=== PATIENT | female | born 1960 | race Two or more races ===

== ENCOUNTER 2020-06-12 17:10 | Outpatient (REF) | payer OTHER, SELFPAY ==
--- NOTE | ~2020-06-12 | XR_ITS ---
EXAMINATION: XR RIGHT KNEE. RIGHT TIBIA AND FIBULA CLINICAL INFORMATION: Pain right leg. COMPARISON: None. TECHNIQUE: 2 views right tibia and fibula. 4 views right knee. FINDINGS: Right Tibia and Fibula: There is no visible fracture or bony abnormality. The periosteum is intact. The ankle mortise and subtalar joints are normal. Right Knee: There is no visible acute fracture, dislocation or subluxation. No bony erosive changes. No abnormal joint effusion. There are no loose body seen. XR/XR tibia fibula RT 2V IMPRESSION: Unremarkable right tibia and fibula. Unremarkable right knee exam.
--- NOTE | ~2020-06-12 | XR_ITS ---
EXAMINATION: XR RIGHT KNEE. RIGHT TIBIA AND FIBULA CLINICAL INFORMATION: Pain right leg. COMPARISON: None. TECHNIQUE: 2 views right tibia and fibula. 4 views right knee. FINDINGS: Right Tibia and Fibula: There is no visible fracture or bony abnormality. The periosteum is intact. The ankle mortise and subtalar joints are normal. Right Knee: There is no visible acute fracture, dislocation or subluxation. No bony erosive changes. No abnormal joint effusion. There are no loose body seen. XR/XR knee RT 4V IMPRESSION: Unremarkable right tibia and fibula. Unremarkable right knee exam.
[2020-06-12 18:08] LABS: MANUAL DIFF FLAG NO
[2020-06-12 18:13] LABS: Glucose Urine UA NEG (NEG); Leukocyte Esterase Urine NEG (NEG); Nitrite Urine NEG (NEG); PH 8.5 (5.0-8.0); Specific Gravity - Urine 1.015 (1.005-1.025); Urine Blood TRACE (NEG); Urine Ketones NEG (NEG); Urine Protein NEG (NEG-TRACE)
[2020-06-12 18:16] LABS: Appearance Urine CLEAR; Color Urine YELLOW
[2020-06-12 18:24] LABS: RBC Urine 0-2 /HPF (0); Squamous Epithelial Cell Urine 1+ /LPF; WBC Urine 0-2 /HPF (0-4)
[2020-06-12 18:26] LABS: Basophils Absolute Auto 0.1 X10*3/uL (0.0-0.2); Basophils Percent Auto 0.9 % (0-2); Eosinophils Absolute Auto 0.1 X10*3/uL (0.0-0.4); Eosinophils Percent Auto 1.8 % (0-4); Hematocrit 40.6 % (37-47); Hemoglobin 12.9 g/dl (12.0-16.0); Imm Gran Abs Auto 0.01 X10*3/uL (0.00-0.03); Imm Gran Pct Auto 0.2 % (0.0-0.4); Mean Corpuscular HGB Conc 31.8 g/dl (31.0-35.0); Mean Corpuscular Hemoglobin 30.3 pg (27.0-33.0); Mean Corpuscular Volume 95.3 fL (80-98); Mean Platelet Volume 9.1 fL (9.4-12.3); Monocytes Absolute Auto 0.4 X10*3/uL (0.1-1.2); Monocytes Percent Auto 6.4 % (2-11); Neutrophils Percent Auto 36.7 % (45-73); Platelet Count 292 X10*3/uL (160-400); Red Blood Count 4.26 X10*6/uL (4.20-5.50); Red Cell Distribution Width 13.1 % (11.0-16.0); White Blood Count 5.5 X10*3/uL (4.8-10.8)
[2020-06-12 18:36] LABS: Alanine Aminotransferase 14 U/L (0-31); Albumin Level 4.4 g/dL (3.5-5.0); Alkaline Phosphatase 90 U/L (39-117); Anion Gap 10 (12-20); Aspartate Amino Transferase 15 U/L (5-31); Bilirubin Total 0.4 mg/dL (0.0-1.0); Blood Urea Nitrogen 12 mg/dL (9-16); Calcium 9.5 mg/dL (8.4-10.2); Carbon Dioxide 30 mmol/L (22-29); Chloride 105 mmol/L (96-108); Estimated Glomerular Filt Rate > 60; Glucose Random 78 mg/dL (60-115); Potassium 4.4 mmol/L (3.3-5.1); Sodium 141 mmol/L (135-145); Total Protein 6.9 g/dL (6.5-8.0)
[2020-06-12 18:57] LABS: Vitamin D 25-OH Total 41.4 ng/mL (>30)
[2020-06-12 18:59] LABS: Syphilis Screen Nonreactive (Nonreactive)
[2020-06-13 04:40] LABS: ~HepC Num1 0.06 S/CO (0.00-0.79); ~Hepatitis C Antibody Nonreactive (Nonreactive)
[2020-06-13 04:43] LABS: HBS Num1 30.38 mIU/mL (0-7.99); ~Hepatitis B Surface Antibody REACTIVE (Nonreactive)
[2020-06-13 04:57] LABS: Estimated Average Glucose 97 mg/dL
== END 2020-06-12 17:11 | disposition home or self-care (01) ==
LOC: HO.XRAY 17:10
PROVIDERS: PCP Internal Medicine; Visit Provider Internal Medicine
DX: R35.0 Frequency of micturition (principal); M79.604 Pain in right leg; M85.80 Other specified disorders of bone density and structure, unspecified site; Z11.3 Encounter for screening for infections with a predominantly sexual mode of transmission; Z13.220 Encounter for screening for lipoid disorders
CPT/HCPCS: 36415; 73564; 73590; 80053; 81001; 82306; 83036; 85025; 86706; 86780; 86803

== ENCOUNTER 2020-07-07 15:01 | Outpatient (REF) | payer OTHER, SELFPAY ==
--- NOTE | ~2020-07-07 | MM_ITS ---
EXAMINATION: BONE DENSITOMETRY CLINICAL INDICATION: Screening for osteoporosis. COMPARISON: This is the patient's baseline examination. TECHNIQUE: Using a Bonegrafix DXA System (software version: 13.1) manufactured by [employer], dual-energy x-ray absorptiometry was performed of the lumbar spine and left hip. The images are of good technical quality. Summary results are attached. FINDINGS: AP SPINE L1-L4: BMD 1.148 g/cm2, Z-score 0.8, T-score -0.3, normal. LEFT FEMUR, NECK: BMD 0.823 g/cm2, Z-score -0.4, T-score -1.5, osteopenia. LEFT FEMUR, TOTAL: BMD 0.853 g/cm2, Z-score -0.4, T-score -1.2, osteopenia. IDENTIFIED RISK FACTORS: Height loss, low calcium intake. Early menopause, secondary osteoporosis. HISTORY OF FRACTURE: None listed. MEDICATIONS: Vitamin D. MM/XR DEXA axial skeleton IMPRESSION: 1. DIAGNOSIS: Osteopenia based on the lowest T-score value of -1.5 in the femoral neck applying World Health Organization criteria. 2. 10-YEAR FRACTURE RISK PREDICTION, FRAX: Major osteoporotic fracture (clinical spine, forearm, hip or shoulder) 4.4%. Hip fracture 0.4%. 3. Treatment Recommendations: NOF guidelines recommend consideration for treatment in postmenopausal women and men age 50 and older presenting with the following: -A hip or vertebral (clinical or morphometric) fracture. -T-score less than or equal to -2.5 at the femoral neck or spine after appropriate evaluation to exclude secondary causes. -Low bone mass at the hip or spine and a 10-year fracture probability by FRAX of greater than or equal to 3% for hip fracture or greater than or equal to 20% for major osteoporotic fracture based on the [place] adapted WHO algorithm. 4. Other Recommendations: All treatment decisions require clinical judgment and consideration of individual patient factors, including patient preferences, comorbidities, previous drug use, risk factors not captured in the FRAX model (e.g. frailty, falls, vitamin D deficiency, increased bone turnover, interval significant decline in bone density) and possible under or overestimation of fracture risk by FRAX. Additional medical evaluation for secondary cause of low bone mineral density may be appropriate. FUTURE SCAN RECOMMENDATION: People with diagnosed cases of osteoporosis or at high risk for fracture should have regular bone mineral density tests. For patients eligible for Medicare, routine testing is allowed once every 2 years. The testing frequency can be increased to one year for patients who have rapidly progressing disease, those who are receiving or discontinuing medical therapy to restore bone mass, or have additional risk factors.
== END 2020-07-07 15:02 | disposition home or self-care (01) ==
LOC: HO.MAMMO 15:01
PROVIDERS: Visit Provider Internal Medicine
DX: Z13.820 Encounter for screening for osteoporosis (principal); Z78.0 Asymptomatic menopausal state; M85.80 Other specified disorders of bone density and structure, unspecified site; Z79.899 Other long term (current) drug therapy
CPT/HCPCS: 77080

== ENCOUNTER 2021-03-08 15:00 | Outpatient (REF) | payer OTHER, SELFPAY ==
--- NOTE | ~2021-03-08 | MM_ITS ---
EXAMINATION: MM SCREENING DIGITAL BREAST TOMOSYNTHESIS, BILATERAL CLINICAL INFORMATION: Screening. Asymptomatic. The lifetime risk of breast cancer based on the Tyrer-Cuzick Model is 4%. COMPARISON: Outside mammography: 12/28/2013, 04/09/2010 ([facility]) TECHNIQUE: Digital breast tomosynthesis is performed in both the craniocaudal and mediolateral oblique views along with computer-aided detection (CAD). Synthesized 2D images are generated from the tomosynthesis. FINDINGS: There are scattered areas of fibroglandular density (ACR BI-RADS breast composition Category b). Parenchymal pattern is similar to prior outside studies. There is no developing density or architectural abnormality. There is no interval mass or architectural abnormality. No abnormal calcifications. The axilla and skin contours are unremarkable. No significant changes. MM/MM tomosynthesis screening BI IMPRESSION: No mammographic evidence of malignancy. ASSESSMENT: BI-RADS 1: Negative RECOMMENDATION: Routine annual mammography screening. This patient's information was entered into a reminder system with a target due date for their next mammogram.
== END 2021-03-08 15:01 | disposition home or self-care (01) ==
LOC: HO.MAMMO 15:00
PROVIDERS: Visit Provider Internal Medicine
DX: Z12.31 Encounter for screening mammogram for malignant neoplasm of breast (principal)
CPT/HCPCS: 77063; 77067

== ENCOUNTER 2021-07-13 08:02 | Outpatient (REF) | payer OTHER, SELFPAY ==
--- NOTE | ~2021-07-13 | XR_ITS ---
EXAMINATION: BILATERAL KNEE STANDING AND RIGHT KNEE. CLINICAL INFORMATION: Pain right knee. COMPARISON: Right knee 06/14/2020 TECHNIQUE: AP bilateral knee standing and right knee 2 views. FINDINGS: AP bilateral knee: There is mild reduction in the medial compartment joint space both knees without bony erosive changes, loose bodies or joint effusion. The soft tissues are normal. Right knee: There is mild loss of patellofemoral compartment joint space with periarticular spurring. No visible acute fracture, dislocation or subluxation seen. There is mild lateral rotation of patella but no subluxation on sunrise view. 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
--- NOTE | ~2021-07-13 | XR_ITS ---
EXAMINATION: BILATERAL KNEE STANDING AND RIGHT KNEE. CLINICAL INFORMATION: Pain right knee. COMPARISON: Right knee 06/14/2020 TECHNIQUE: AP bilateral knee standing and right knee 2 views. FINDINGS: AP bilateral knee: There is mild reduction in the medial compartment joint space both knees without bony erosive changes, loose bodies or joint effusion. The soft tissues are normal. Right knee: There is mild loss of patellofemoral compartment joint space with periarticular spurring. No visible acute fracture, dislocation or subluxation seen. There is mild lateral rotation of patella but no subluxation on sunrise view. 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
== END 2021-07-13 08:03 | disposition home or self-care (01) ==
LOC: HO.HOSX 08:02
PROVIDERS: Visit Provider Physician Assistant
DX: M17.11 Unilateral primary osteoarthritis, right knee (principal); M79.661 Pain in right lower leg
CPT/HCPCS: 73560; 73565; 99202

== ENCOUNTER → 2022-02-15 09:06 | Outpatient (BNVA) | payer OTHER, SELFPAY | PROVIDERS: PCP Internal Medicine; Visit Provider Urology | DX: Z13.9 Encounter for screening, unspecified (principal); R32 Unspecified urinary incontinence; N81.89 Other female genital prolapse | CPT/HCPCS: 51798; 99202 ==

== ENCOUNTER 2022-04-11 12:24 | Outpatient (REF) | payer OTHER, SELFPAY ==
--- NOTE | ~2022-04-11 | MM_ITS ---
EXAMINATION: MM SCREENING DIGITAL BREAST TOMOSYNTHESIS, BILATERAL CLINICAL INFORMATION: Screening. Asymptomatic. The lifetime risk of breast cancer based on the Tyrer-Cuzick Model is 4%. COMPARISON: Mammography: March 08, 2021 and studies dating back to April 09, 2010 TECHNIQUE: Digital breast tomosynthesis is performed in both the craniocaudal and mediolateral oblique views along with computer-aided detection (CAD). Synthesized 2D images are generated from the tomosynthesis. FINDINGS: There are scattered areas of fibroglandular density (ACR BI-RADS breast composition Category b). There are no significant masses, abnormal calcifications, or other abnormalities. MM/MM tomosynthesis screening BI IMPRESSION: No significant changes from prior exam. ASSESSMENT: BI-RADS 1: Negative RECOMMENDATION: Routine annual mammography screening. This patient's information was entered into a reminder system with a target due date for their next mammogram.
== END 2022-04-11 12:25 | disposition home or self-care (01) ==
LOC: HO.MAMMO 12:24
PROVIDERS: Visit Provider Internal Medicine
DX: Z12.31 Encounter for screening mammogram for malignant neoplasm of breast (principal)
CPT/HCPCS: 77063; 77067

== ENCOUNTER → 2022-06-13 08:54 | Outpatient (BNVA) | payer OTHER, SELFPAY | PROVIDERS: PCP Internal Medicine; Visit Provider Urology | DX: R32 Unspecified urinary incontinence (principal); N81.89 Other female genital prolapse; R39.15 Urgency of urination | CPT/HCPCS: 51798 ==

== ENCOUNTER 2022-07-10 16:02 | Outpatient (REF) | payer OTHER, SELFPAY ==
--- NOTE | ~2022-07-10 | US_ITS ---
EXAMINATION: US RETROPERITONEAL LIMITED (RENAL ONLY) CLINICAL INFORMATION: Other microscopic hematuria. COMPARISON: None available. TECHNIQUE: Real-time imaging of the kidneys. FINDINGS: RIGHT KIDNEY: 10.4 x 3.8 x 5.6 cm (SAG x AP x TRV). The kidney is normal in size, contour, and echogenicity. Renal cortical thickness is normal. A junctional parenchymal defect is noted in the mid kidney. No calculi or focal parenchymal lesions. No hydronephrosis. LEFT KIDNEY: 10.7 x 4.9 x 5.3 cm (SAG x AP x TRV). The kidney is normal in size, contour, and echogenicity. Renal cortical thickness is normal. No calculi or focal parenchymal lesions. No hydronephrosis. US/US renal BI IMPRESSION: No significant abnormality is seen. A cause for the patient's microscopic hematuria has not been found.
== END 2022-07-10 16:03 | disposition home or self-care (01) ==
LOC: HO.US 16:02
PROVIDERS: PCP Internal Medicine; Visit Provider Urology
DX: R31.29 Other microscopic hematuria (principal)
CPT/HCPCS: 76775

== ENCOUNTER 2022-09-23 11:50 | Outpatient (REF) | payer OTHER, SELFPAY ==
--- NOTE | ~2022-09-23 | XR_ITS ---
EXAMINATION: XR TOES, LEFT CLINICAL INFORMATION: Intense great toe pain. COMPARISON: None available. TECHNIQUE: 3 views of the left toes were obtained. FINDINGS: There are no fractures or dislocations. No joint effusion is identified. No bone, joint or soft tissue abnormality is demonstrated. XR/XR toe LT min 2V IMPRESSION: Unremarkable examination.
== END 2022-09-23 11:51 | disposition home or self-care (01) ==
LOC: HO.HHCX 11:50
PROVIDERS: Visit Provider Student in an Organized Health Care Education/Training Program
DX: M79.675 Pain in left toe(s) (principal)
CPT/HCPCS: 73660

== ENCOUNTER 2022-10-11 16:48 | Emergency (ER) | payer OTHER, SELFPAY ==
[2022-10-11 16:54] VITALS: BP 161/84; PULSE 80; RESP 18; TEMP 36.8; O2SAT 99; BMI 25.6
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
--- NOTE | 2022-10-11 17:02 | PC.NURSE ---
EVAL AND DC BY PIT
== END 2022-10-11 17:08 | disposition home or self-care (01) ==
PROVIDERS: Emergency Provider Emergency Medicine; PCP Student in an Organized Health Care Education/Training Program
DX: S02.5XXA Fracture of tooth (traumatic), initial encounter for closed fracture (principal); Y29.XXXA Contact with blunt object, undetermined intent, initial encounter; Y93.9 Activity, unspecified; Y92.9 Unspecified place or not applicable; Y99.0 Civilian activity done for income or pay
CPT/HCPCS: 99282

== ENCOUNTER 2023-04-17 12:29 | Outpatient (REF) | payer OTHER, SELFPAY ==
--- NOTE | ~2023-04-17 | MM_ITS ---
EXAMINATION: MM SCREENING DIGITAL BREAST TOMOSYNTHESIS, BILATERAL CLINICAL INFORMATION: Screening. Asymptomatic. COMPARISON: Mammography: This study is compared with prior exams dating back to 2013. TECHNIQUE: Digital breast tomosynthesis is performed in both the craniocaudal and mediolateral oblique views along with computer-aided detection (CAD). Synthesized 2D images are generated from the tomosynthesis. FINDINGS: There are scattered areas of fibroglandular density (ACR BI-RADS breast composition Category b). There are no significant masses, abnormal calcifications, or other abnormalities. MM/MM tomosynthesis screening BI IMPRESSION: No mammographic evidence of malignancy. ASSESSMENT: BI-RADS BI-RADS 1 - Negative RECOMMENDATION: Routine annual mammography screening. 1 year F/U This examination should not preclude the clinical evaluation of a suspicious palpable abnormality. This patient's information was entered into a reminder system with a target due date for their next mammogram.
== END 2023-04-17 12:30 | disposition home or self-care (01) ==
LOC: HO.MAMMO 12:29
PROVIDERS: PCP Student in an Organized Health Care Education/Training Program; Visit Provider Student in an Organized Health Care Education/Training Program
DX: Z12.31 Encounter for screening mammogram for malignant neoplasm of breast (principal)
CPT/HCPCS: 77063; 77067

== ENCOUNTER → 2023-04-17 12:30 | Outpatient (BNV) | payer OTHER, SELFPAY | PROVIDERS: PCP Student in an Organized Health Care Education/Training Program; Visit Provider Radiology Diagnostic Radiology | DX: Z12.31 Encounter for screening mammogram for malignant neoplasm of breast (principal) | CPT/HCPCS: 77063; 77067 ==

== ENCOUNTER 2023-07-29 17:40 | Outpatient (REF) | payer OTHER, SELFPAY ==
[2023-07-30 08:40] LABS: Bacterial Vaginosis PCR POSITIVE (Negative); Candida Group PCR NOT DETECTED (Not Detect); Candida glab krusei PCR NOT DETECTED (Not Detect); Trichomonas vaginalis PCR NOT DETECTED (Not Detect)
== END 2023-07-29 17:41 | disposition home or self-care (01) ==
LOC: HO.HHCLNP 17:40
PROVIDERS: Visit Provider Student in an Organized Health Care Education/Training Program
DX: N89.8 Other specified noninflammatory disorders of vagina (principal)
CPT/HCPCS: 0352U

== ENCOUNTER 2023-08-08 15:04 | Outpatient (REF) | payer OTHER, SELFPAY ==
--- NOTE | ~2023-08-08 | XR_ITS ---
EXAMINATION: XR CHEST CLINICAL INFORMATION: Abnormal physical examination. COMPARISON: None available. TECHNIQUE: 2 views of the chest were obtained. FINDINGS: The lungs are well expanded. No focal consolidation. No pleural effusion. Cardiac silhouette is within normal limits. XR/XR chest 2V IMPRESSION: No acute abnormality.
[2023-08-08 17:54] LABS: CT PCR NOT DETECTED (Not Detect.); NG PCR NOT DETECTED (Not Detect.)
== END 2023-08-08 15:05 | disposition home or self-care (01) ==
LOC: HO.HHCX 15:04
PROVIDERS: Visit Provider Student in an Organized Health Care Education/Training Program
DX: Z00.00 Encounter for general adult medical examination without abnormal findings (principal); R09.89 Other specified symptoms and signs involving the circulatory and respiratory systems; Z11.3 Encounter for screening for infections with a predominantly sexual mode of transmission
CPT/HCPCS: 71046; 87491; 87591

== ENCOUNTER 2023-08-08 16:54 | Outpatient (REF) | payer OTHER, SELFPAY ==
[2023-08-08 17:49] LABS: Creatinine Urine 168.08 mg/dL; Microalbum/Creatinine Ratio Ur 7.1 ug/mg cr (<30)
[2023-08-08 18:10] LABS: Appearance Urine Clear; Color Urine Yellow; Glucose Urine UA Negative (Negative); Leukocyte Esterase Urine Negative (Negative); Nitrite Urine Negative (Negative); PH 6.5 (5.0-9.0); Specific Gravity - Urine 1.025 (1.005-1.025); UMIC TRIGGER UACC YES; Urine Blood Trace (Negative); Urine Ketones Negative (Negative); Urine Protein Negative (Neg-Trace)
[2023-08-08 18:14] LABS: Bacteria Urine None Seen (None Seen); Hyaline Casts Urine 0-2 /LPF (0-2); Squamous Epithelial Cell Urine 0-2 /HPF (0-2); WBC Urine 0-5 /HPF (0-5)
== END 2023-08-08 16:55 | disposition home or self-care (01) ==
LOC: HO.HHCLNP 16:54
PROVIDERS: Visit Provider Student in an Organized Health Care Education/Training Program
DX: R30.0 Dysuria (principal)
CPT/HCPCS: 81001; 82043; 82570

== ENCOUNTER 2023-08-12 16:46 | Outpatient (REF) | payer BC, SELFPAY ==
[2023-08-12 18:17] LABS: Bacterial Vaginosis PCR POSITIVE (Negative); Candida Group PCR DETECTED (Not Detect); Candida glab krusei PCR NOT DETECTED (Not Detect); Trichomonas vaginalis PCR NOT DETECTED (Not Detect)
== END 2023-08-12 16:47 | disposition home or self-care (01) ==
LOC: HO.HHCLNP 16:46
PROVIDERS: Visit Provider Advanced Practice Midwife
DX: N89.8 Other specified noninflammatory disorders of vagina (principal)
CPT/HCPCS: 0352U

== ENCOUNTER 2023-08-22 15:32 | Outpatient (REF) | payer BC, SELFPAY | END 2023-08-22 15:33 | disposition home or self-care (01) | LOC: HO.HMGCX 15:32 | PROVIDERS: PCP Student in an Organized Health Care Education/Training Program; Visit Provider Student in an Organized Health Care Education/Training Program | DX: Z13.89 Encounter for screening for other disorder (principal) ==

== ENCOUNTER 2023-08-25 11:32 | Outpatient (REF) | payer BC, SELFPAY | END 2023-08-25 11:33 | disposition home or self-care (01) | LOC: HO.HMGCX 11:32 | PROVIDERS: PCP Student in an Organized Health Care Education/Training Program; Visit Provider Student in an Organized Health Care Education/Training Program | DX: Z13.89 Encounter for screening for other disorder (principal) ==

== ENCOUNTER 2023-08-26 11:42 | Outpatient (REF) | payer BC, SELFPAY ==
--- NOTE | ~2023-08-26 | US_ITS ---
EXAMINATION: US RETROPERITONEAL COMPLETE (RENAL) CLINICAL INFORMATION: Hematuria. COMPARISON: Renal ultrasound 07/10/2022. TECHNIQUE: Real-time imaging of the kidneys and bladder. FINDINGS: RIGHT KIDNEY: 12.0 x 3.9 x 5.9 cm (SAG x AP x TRV). The kidney is normal in size, contour, and echogenicity. Renal cortical thickness is normal. No calculi or focal parenchymal lesions. No hydronephrosis. A 3 mm hyperechoic focus is seen at the interpolar aspect, which does not meet formal ultrasound criteria for a calculus. LEFT KIDNEY: 12.6 x 5.9 x 4.7 cm (SAG x AP x TRV). The kidney is normal in size, contour, and echogenicity. Renal cortical thickness is normal. No calculi or focal parenchymal lesions. No hydronephrosis. BLADDER: Well distended and normal. Bilateral ureteral jets are demonstrated. Prevoid bladder volume is 474 mL. Postvoid bladder volume is 56 mL. ADDITIONAL FINDINGS: There is a small amount nonspecific free fluid within the endometrial canal. US/US retroperitoneal comp IMPRESSION: 1. No renal mass, calcium hydronephrosis is seen bilaterally. 2. There is a borderline increased postvoid residual volume. 3. There is a small amount nonspecific free fluid within the endometrial canal.
== END 2023-08-26 11:43 | disposition home or self-care (01) ==
LOC: HO.HMGCX 11:42
PROVIDERS: PCP Student in an Organized Health Care Education/Training Program; Visit Provider Student in an Organized Health Care Education/Training Program
DX: R31.9 Hematuria, unspecified (principal)
CPT/HCPCS: 76770

== ENCOUNTER 2023-09-23 10:08 | Outpatient (REF) | payer BC, SELFPAY ==
[2023-09-23 12:03] LABS: Hematocrit 41.4 % (37.0-47.0); Hemoglobin 13.8 g/dl (12.0-16.0); Mean Corpuscular HGB Conc 33.3 g/dl (31.0-35.0); Mean Corpuscular Hemoglobin 31.4 pg (27.0-33.0); Mean Corpuscular Volume 94.1 fL (80.0-98.0); Mean Platelet Volume 9.5 fL (9.4-12.3); Platelet Count 281 X10*3/uL (160-400); Red Cell Distribution Width 13.2 % (11.0-16.0); White Blood Count 4.4 X10*3/uL (4.8-10.8)
[2023-09-23 12:18] LABS: Estimated Average Glucose 103 mg/dL; Hemoglobin A1c % 5.2 % (<6.0)
[2023-09-23 12:31] LABS: Syphilis Screen Nonreactive (Nonreactive)
[2023-09-23 12:37] LABS: HBS Num1 26.74 mIU/mL (0-7.99); HBc Num1 0.15 S/CO (0.00-0.79); HBsAGNum1 0.25 S/CO (0.00-0.99); HIV AB/AG Nonreactive (Nonreactive); HIV Num 1 0.06 S/CO (0.00-0.99); Hepatitis B Core Antibody Nonreactive (Nonreactive); Hepatitis B Surface Antigen Negative (Negative); ~HepC Num1 0.11 S/CO (0.00-0.79); ~Hepatitis B Surface Antibody REACTIVE (Nonreactive); ~Hepatitis C Antibody Nonreactive (Nonreactive)
[2023-09-23 12:41] LABS: Alanine Aminotransferase 15 U/L (0-31); Albumin Level 4.3 g/dL (3.5-5.0); Alkaline Phosphatase 81 U/L (39-117); Anion Gap 10 (12-20); Aspartate Amino Transferase 15 U/L (5-31); Bilirubin Total 0.7 mg/dL (0.0-1.0); Blood Urea Nitrogen 12 mg/dL (9-16); Carbon Dioxide 26 mmol/L (22-29); Chloride 108 mmol/L (96-108); Cholesterol 199 mg/dL (<200); Estimated Glomerular Filt Rate > 60; Glucose Random 101 mg/dL (60-115); HDL Cholesterol 67 mg/dL (>40); LDL Cholesterol Calculated 116 mg/dL (<100); Potassium 3.6 mmol/L (3.3-5.1); Sodium 140 mmol/L (135-145); TSH reflex Free T4 0.98 uIU/mL (0.32-4.0); Triglycerides 80 mg/dL (<150)
== END 2023-09-23 10:09 | disposition home or self-care (01) ==
LOC: HO.HHCL 10:08
PROVIDERS: Visit Provider Student in an Organized Health Care Education/Training Program
DX: Z00.00 Encounter for general adult medical examination without abnormal findings (principal); Z13.1 Encounter for screening for diabetes mellitus
CPT/HCPCS: 36415; 80053; 80061; 83036; 84443; 85027; 86704; 86706; 86780; 86803; 87340; 87389

== ENCOUNTER 2023-10-30 16:20 | Outpatient (REF) | payer BC, SELFPAY ==
--- NOTE | ~2023-10-30 | US_ITS ---
EXAMINATION: US PELVIS CLINICAL INFORMATION: Abnormal findings on diagnostic imaging of body structures, last menstrual period 2006. COMPARISON: None available. TECHNIQUE: Ultrasound of the pelvis is performed using both transabdominal and transvaginal transducers along with Doppler. Transvaginal imaging is performed due to inadequate visualization transabdominally. FINDINGS: The uterus is anteverted and measures 6.7 x 3.0 x 5.0 cm. Double wall endometrial thickness is 5 mm. Small amount of fluid within the endometrial canal. Bilateral ovaries were not visualized. Limited visualization due to bowel gas and body habitus. No significant free fluid. US/US pelvic and transvaginal IMPRESSION: 1. Double wall endometrial thickness is 5 mm. Small amount of fluid within the endometrial canal. 2. Bilateral ovaries were not visualized. Limited visualization due to bowel gas and body habitus. Electronically signed by: Ginny Lundy MD 11/04/2023 01:43 PM EDT
== END 2023-10-30 16:21 | disposition home or self-care (01) ==
LOC: HO.US 16:20
PROVIDERS: PCP Student in an Organized Health Care Education/Training Program; Visit Provider Student in an Organized Health Care Education/Training Program
DX: R93.89 Abnormal findings on diagnostic imaging of other specified body structures (principal)
CPT/HCPCS: 76830; 76856

== ENCOUNTER 2023-10-31 13:02 | Outpatient (AMB) | payer BC, SELFPAY ==
[2023-10-31 13:05] VITALS: BP 136/86; PULSE 70; BMI 25.3
--- NOTE | 2023-10-31 13:05 | A.OFFVIS_ITS ---
Vital Signs 3 10/31/23 13:05 Height 5 ft 4 in Weight 147 lb 4.301 oz BMI 25.3 BP 136/86 Blood Pressure Location Lt brachial Position Sitting Pulse 70 Intake Visit Reasons: Colonoscopy Screening Intake Note: Romi presents as a new patient for colonoscopy screening. CC: Patient states that her last colonoscopy was done around 2009 and that type polyps were removed. She reports constipation alternating with diarrhea but mostly constipation. Denies other GI symptoms. Ent Nurse Required: No Accompanied by: Self / Same As Patient Allergies No Known Allergies Allergy (Verified 10/31/23 13:14) HPI HPI Colonoscopy Screening: Details: 63-year-old female here for preprocedural meeting to discuss a screening colonoscopy. She is referred by [facility]. PMX Hypertension Insomnia Carpal tunnel syndrome Urinary incontinence/pelvic floor weakness Patellofemoral arthritis of the right knee Osteopenia * SURGICAL HISTORY section x 2 Colonoscopy 12 y ears ago [facility] * ALLERGIES: NKDA * [employer] LABS: Laboratory Tests 09/23/23 10:16 WBC 4.4 L Hgb 13.8 Hct 41.4 Plt Count 281 Estimated GFR > 60 Total Bilirubin 0.7 AST 15 ALT 15 Alkaline Phosphatase 81 TSH 0.98 TODAY'S VISIT She had a prior colonoscopy at [facility] and she thinks, but is not sure, that polyps were removed. This was about 10-12 years ago. She suffers CIC and she tries to drink more water, but then she has to urinate more. She does not feel she needs more help. No upper GI problesm. There are no prior problems with anesthesia or sedation. She denies any cardiac or respiratory problems. No ID problems. Her mother young and she does not know her hx, she dose not know of CRC or polyps. [facility] Medical History Osteopenia Surgical History H/O colonoscopy History of delivery Social History Alcohol intake: current Alcohol intake frequency: holidays/special occasions only Patient Tobacco Use Status: Never used Tobacco Use of substances other than those prescribed or required for medical reasons: No Current occupational status: employed Current occupation: paraprofessional, rt hand Review of Systems Const Denies fatigue, Denies fever(s), Denies night sweats, Denies poor appetite and Denies weight loss ENT Reports Normal hearing present, Denies dental pain, Denies dysphagia, Denies hearing loss, Denies mouth pain, Denies odynophagia, Denies throat swelling, Denies tongue swelling and Reports other (Dentition adequate) Card Reports no additional complaints Resp Reports no additional complaints GI Details: Denies abdominal pain, Denies melena, Denies bloating, Denies hematochezia, Reports constipation, Denies GI cramping, Denies dysphagia, Denies excessive flatus, Denies early satiety, Denies heartburn, Denies diarrhea, Denies nausea, Denies odynophagia, Denies vomiting and Denies hematemesis Skin/Breast Denies pruritus, Denies lesions, Denies rash and Denies jaundice Neuro Reports Normal hearing present and Denies Abnormal speech present Endo Denies fatigue Aller/Immun Denies throat swelling and Denies tongue swelling Physical Exam Vital Signs: Last Vital Signs Pulse 70 10/31/23 13:05 BP 136/86 10/31/23 13:05 BMI result Body Mass Index 25.3 Const General: cooperative, no acute distress, well developed and well groomed Nutritional Appearance: average body habitus and well nourished Orientation/consciousness: oriented to person, oriented to place and oriented to time Limitations: No language barrier HEENT Head: Yes normocephalic and Yes atraumatic Eyes General: appearance normal, both eyes and all related structures Pupils: Equal, round and reactive pupils present Neck Neck: Yes normal visual inspection and Yes no lymphadenopathy Thyroid: Thyroid normal Resp Effort & Inspection: normal respiratory effort and able to speak in complete sentences Auscultation: clear to auscultation bilaterally Cardio Rate: regular rate Rhythm: regular rhythm Heart sounds: Normal, physiologic split S2 sound present Peripheral pulses: radial pulses present and posterior tibial pulses present GI Inspection: No distended, No Abdominal panniculus present, Yes scar and Yes striae Palpation (GI): Soft to palpation, nontender, no guarding, not rigid and No hepatosplenomegaly present Percussion: Yes normal to percussion Auscultation: normal bowel sounds Rectal Exam - Female: deferred Abdomen image: 2 1. surgical scar Skin General skin exam: no rashes or lesions noted, turgor normal, skin not dry, no jaundice, No spider nevi and no striae Rashes: no rashes Nails: normal Neuro General: oriented to person, oriented to place and oriented to time Cranial nerves: Yes Equal, round and reactive pupils present and Yes Normal hearing present Speech: No Abnormal speech present Extrem General: Yes normal to inspection, No clubbing, No cyanosis and No edema Psych Appearance: grossly normal and well kempt Mental Status: mental status grossly normal Speech and movement: Normal speech and movement present Affect: normal affect Attitude: cooperative Thought process: Normal thought process present and not confabulating Thought content: Normal thought content present Insight: Limited insight present (Psych) Judgement: Limited judgement present (Psych) Assessment & Plan Assessment & Plan (1) Pre-op examination: Code(s): Z01.818 - Encounter for other preprocedural examination Category: Medical Plan She had a prior colonoscopy at [facility] and she thinks, but is not sure, that polyps were removed. This was about 10-12 years ago. She suffers CIC and she tries to drink more water, but then she has to urinate more. She does not feel she needs more help. No upper GI problems. There are no prior problems with anesthesia or sedation. She denies any cardiac or respiratory problems. No ID problems. Her mother young and she does not know her hx, she dose not know of CRC or polyps. Orders: Orders 2 Colonoscopy - GI Use Only Today Z01.818 - Encounter for other preprocedural examination Medications: New 2 sod sulf-pot chloride-mag sulf 1.479-0.188- 0.225 gram (Sutab) PO PER PKG DIR for colonoscopy prep 24 tabs 0RF Coding Level of Care Code New Pt Level 3 (11243) Diagnoses Pre-op examination Z01.818
== END 2023-10-31 13:40 | disposition home or self-care (01) ==
PROVIDERS: PCP Student in an Organized Health Care Education/Training Program; Visit Provider Nurse Practitioner
DX: Z01.818 Encounter for other preprocedural examination (principal); Z12.11 Encounter for screening for malignant neoplasm of colon; Z86.010 Personal history of colon polyps; K59.00 Constipation, unspecified
CPT/HCPCS: S0285

== ENCOUNTER → 2023-10-31 13:02 | Outpatient (BNVA) | payer BC, SELFPAY | PROVIDERS: PCP Student in an Organized Health Care Education/Training Program; Visit Provider Nurse Practitioner ==

== ENCOUNTER 2024-04-08 15:31 | Outpatient (REF) | payer BC, SELFPAY ==
--- NOTE | ~2024-04-08 | US_ITS ---
EXAMINATION: US PELVIS CLINICAL INFORMATION: Increased endometrial thickness with fluid in the canal. COMPARISON: Ultrasound pelvis and transvaginal 10/30/2023 TECHNIQUE: Ultrasound of the pelvis is performed using both transabdominal and transvaginal transducers along with Doppler. Transvaginal imaging is performed due to inadequate visualization transabdominally. FINDINGS: Uterus: The uterus is anteverted and measures 0.2 x 2.9 x 4.6 cm. The double wall endometrial thickness is 0.39 cm. Free fluid is seen within the endometrial canal. Previously measured 0.5 cm The uterus is smooth in contour and has normal myometrial echogenicity. No visible fibroid. Adnexa: Both ovaries are visualized. There is normal color flow to the adnexa. There is no ovarian torsion. There is no pelvic ascites or fluid collection. Right ovary measures 2.0 x 0.8 x 1.4 cm. Left ovary measures 2.0 x 1.0 x 0.9 CM on transabdominal ultrasound. There is no free fluid in cul-de-sac. There is mild bilateral pelvic venous congestion left greater than right. There are nabothian noted. US/US pelvic and transvaginal IMPRESSION: Unremarkable uterus. There is fluid within the endometrial canal similar to previous study with endometrial thickness of 0.39 cm minimally improved compared to 0.5 cm previously. There is mild bilateral pelvic congestion left greater than right. Small nabothian cysts in the cervix. Electronically signed by: Bigg Cooper MD 04/08/2024 05:18 PM [facility]
--- OUTSIDE RECORDS SUMMARY | 2024-04-08 18:50 | XMS_ITS | Encounter Summary ---
Author Organization [employer] Address [address] [place] [address] [address] [place] [address] Care Team Providers Care Photoengraving Sketch Maker Name Role Phone Megan De Los Santos MD Primary Care Provider Vilma Abbott MD Primary Care Pro vider Encounter Details Date Type Department Care Team (Latest Contact Info) Description 01/26/2021 Abstract [facility] CONVERSIONS Dental, Provider, DDS Social History [...] on filedocumented in this encounter Care Teams Photoengraving Sketch Maker Relationship Specialty Start Date End Date Megan De Los Santos MD PCP - General Family Medicine 04/06/20 12/26/21 Vilma Clifton MD [address] [place] [address] PCP - General Internal Medicine 06/21/22 documented as of this encounter
--- OUTSIDE RECORDS SUMMARY | 2024-04-08 18:50 | XMS_ITS | Encounter Summary ---
Author Organization [employer] Address [address] [address] Care Team Providers Care Budget Counselor Name Role Phone Vilma Clifton MD Primary Care Pro vider Reason for Visit * Reason Comments Med Refill Encounter Details Date Type Department Care Team (Late st Contact Info) Description 06/28/2023 Refill [facility] [address] [place], [place] [phone] Vilma Clifton MD [address] [place] [address] Primary hypertension Social History Tobacco Use Types [...] documented as of this encounter Care Teams Budget Counselor Relationship Specialty Start Date End Date Vilma Clifton MD [address] [place] [phone] PCP - General Internal Medicine 06/21/22 documented as of this encounter
--- OUTSIDE RECORDS SUMMARY | 2024-04-08 18:50 | XMS_ITS | Clinical Summary ---
Author Organization [facility] ity Address [address] [place] [address] Care Team Providers Care Unit Control Clerk Name Role Phone Unavailable Primary Care Provider [...] Procedure Name Priority Date/Time Associated Diagnosis Comments [facility] SCREENING DIGITAL Routine 06/03/2018 6:56 PM EDT Encounter for screening mammogram for malignant neoplasm of breast from Last 3 Months or Most Recently Relevant to Health Maintenance Results * [facility] SCREENING DIGITAL (06/03/2018 6:56 PM EDT) Anatomical Region Laterality Modality Mammography 06/03/2018 1:12 PM EDT Narrative 06/03/2018 6:[address] [facility] Diagnostic Imaging Department [address] [place] [id number] Patient: ??STEINBERG,ROMI ?/Age/Sex: 1960 - 58 - F Unit#: ??[id number] ? Location/Status: ??SPDIMAM/REG CLI ? Mnemonic/Ordering Site: ??DIGSC/SPMAM Ordering Physician: ??ANA REYNA [facility] [place] Digital - 06/03/18 - 1332 History: [...] mammography. BIRADS category 1; negative study, 3341F 78197, 44888 Note: Patient information entered into a reminder system with a target due date for the next mammogram: ??CPT II 7025F Dictating Physician: ??EHSAN LEAHY MD Electronically Signed by: ??EHSAN LEAHY MD Dic Date/Time: ??06/03/181854 Sign date/Time: ??06/03/181855 Procedure Note Ehsan Leahy MD - 01/29/2022 [facility] Diagnostic Imaging Department [address] [place] [address] Patient: ROMI STEINBERG /Age/Sex: 1960 - 58 - F Unit#: [id number] [facility]Ordering Site: DIGMT/[facility] Ordering Physician: ANA REYNA Cas [...] mammography. BIRADS category 1; negative study, 3341F 63209, 29505 Note: Patient information entered into a reminder system with a target duedate for the next mammogram: CPT II 7025F Dictating Physician: EHSAN LEAHY MD Electronically Signed by: EHSAN LEAHY MD Dic Date/Time: 06/03/181854 Sign date/Time: 06/03/181855 Ana CROOK IMG BI PROCEDURES Final Result from Last 3 Months or Most Recently Relevant to Health Maintenance
--- OUTSIDE RECORDS SUMMARY | 2024-04-08 18:50 | XMS_ITS | Encounter Summary ---
Author Organization [employer] Address [address] [place] [address] [address] [place] [address] Care Team Providers Care Director Information Name Role Phone Vilma Clifton MD Primary Care Pro vider Encounter Details Date Type Department Care Team ([facility] st Contact Info) Description 04/10/2022 Orders Only [facility] [address] [place] [address] Catia Hassan LPN Social History Tobacco Use [...] on filedocumented in this encounter Care Teams Director Information Relationship Specialty Start Date End Date Vilma Clifton MD [address] [place] [address] PCP - General Internal Medicine 06/21/22 documented as of this encounter
--- OUTSIDE RECORDS SUMMARY | 2024-04-08 18:50 | XMS_ITS | Clinical Summary ---
Author Organization [employer] Address [address] [facility] [address] [place] [address] Care Team Providers Care Dispute Specialist Name Role Phone Vilma Clifton MD Primary [...] -Pt w food insecurity, already spoke w field nurse case manager prior to this apt ---- -Phlegm - [...] diet and exercise,discussed healthy life style -discussed [employer] ax developer referral, refused today Assessment & Plan (07/22/2022 9:28 PM EDT): Advised pt to improve diet and exercise,discussed healthy life style -discussed [employer] ax developer referral, refused today Hematuria, unspecified 08/05/2019 Assessment [...] of urinary incontinence/hematuria, f w urologist at [facility] per pt Pt states was referred by specialist for rehab of pelvic floor and plan for cystoscopy not done yet----- Advise pt to call her urologist and schedule f up for planned tests and procedure - Continue Solifenacin Encounters Date Type Department Care Team Description 03/03/2024 Telephone [facility] [address] [place] [address] Maria Artis MA Appointment 02/18/2024 11:20 AM EST Office Visit [facility] [address] [place] [address] Victorina Mcgee MD UTI symptoms 01/19/2024 2:00 PM EST Office Visit [facility] [address] [place] [address] Victorina Mcgee MD Acute bronchitis, unspecified organism [...] the past 12 months, has t he [employer] oil or [employer] company threatened to [...] Procedure Name Priority Date/Time Associated Diagnosis Comments US PELVIS TRANSVAGINAL Routine 3:38 PM EST Increased endometrial stripe thickness POCT URINALYSIS DIPSTICK Routine 02/18/2024 11:24 AM [...] Recently Relevant to Health Maintenance Results * US Pelvis Transvaginal (04/08/2024 3:38 PM EST) Anatomical Region Laterality Modality Pelvis Ultrasound 04/08/2024 3:38 PM EST Narrative 04/08/2024 5:21 PM EST ? [facility] ?[address] ? [place] [address] ? Ultrasound Report ? Signed ? Patient: Steinberg,Romi ?MR#: [id number] ? : 1960 ?Acct:[id number] ? Age/Sex: 64 / F ?ADM Date: 04/08/24 ? Loc: HO.HMGCX ? Attending Dr: Vilma Zavala MD ? Ordering Physician: Vilma Clifton MD ?? Date of Service: 04/08/24 ?? Procedure(s): US pelvic and transvaginal ?? Accession Number(s): [id number] ? cc: Vilma Clifton MD ? EXAMINATION: ? US PELVIS ? CLINICAL INFORMATION: ? Increased endometrial thickness with fluid in the canal. ? COMPARISON: ?? Ultrasound pelvis and transvaginal 10/30/2023 ? TECHNIQUE: ?? Ultrasound of the pelvis is performed using both transabdominal and ?? transvaginal transducers along with Doppler. Transvaginal imaging is ?? performed due to inadequate visualization transabdominally. ? FINDINGS: ?? Uterus: ?? The uterus is anteverted and measures 0.2 x 2.9 x 4.6 cm. ? The double wall endometrial thickness is 0.39 cm. ??Free fluid is seen ?? within the endometrial canal. Previously measured 0.5 cm ? The uterus is smooth in contour and has normal myometrial echogenicity. ?No visible fibroid. ? Adnexa: ?? Both ovaries are visualized. There is normal color flow to the adnexa. ?? There is no ovarian torsion. ??There is no pelvic ascites or fluid ?? collection. ? Right ovary measures 2.0 x 0.8 x 1.4 cm. ? Left ovary measures 2.0 x 1.0 x 0.9 CM on transabdominal ultrasound. ? There is no free fluid in cul-de-sac. There is mild bilateral pelvic ?? venous congestion left greater than right. There are nabothian noted. ? US/US pelvic and transvaginal ?? IMPRESSION: ?? Unremarkable uterus. ? There is fluid within the endometrial canal similar to previous study ?? with endometrial thickness of 0.39 cm minimally improved compared to ?? 0.5 cm previously. ? There is mild bilateral pelvic congestion left greater than right. ? Small nabothian cysts in the cervix. ? Electronically signed by: ??Bigg Cooper MD ??04/08/2024 05:18 PM EST RP ? Dictated By: ?Allison,Bigg S MD ? Signed By: ?<Electronically signed by Bigg Cooper MD in OV> ?04/08/248 ? DD/ 1538 ? TD/TT: 04/08/24 1601 ? Head Turbine Operator: MSM ? Procedure Note Donandilamontter, Image - 04/08/2024 [facility] [address] [place] [address] [place] [address] Ultrasound Report Signed Patient: Edmond Steinberg#: [id number] : 1960cct:[id number] Age/Sex: 64 / FADM Date: 04/08/24 Loc: HO.HMGCX Attending Dr: Vilma Zavala MD Ordering Physician: Vilma Clifton MD Date of Service: 04/08/24 Procedure(s): US pelvic and transvaginal Accession Number(s): [id number] cc: Vilma Clifton MD EXAMINATION: US PELVIS CLINICAL INFORMATION: Increased endometrial thickness with fluid in the canal. COMPARISON: Ultrasound pelvis and transvaginal 10/30/2023 TECHNIQUE: Ultrasound of the pelvis is performed using both transabdominal and transvaginal transducers along with Doppler. Transvaginal imaging is performed due to inadequate visualization transabdominally. FINDINGS: Uterus: The uterus is anteverted and measures 0.2 x 2.9 x 4.6 cm. The double wall endometrial thickness is 0.39 cm. Free fluid is seen within the endometrial canal. Previously measured 0.5 cm The uterus is smooth in contour and has normal myometrial echogenicity. No visible fibroid. Adnexa: Both ovaries are visualized. There is normal color flow to the adnexa. There is no ovarian torsion. There is no pelvic ascites or fluid collection. Right ovary measures 2.0 x 0.8 x 1.4 cm. Left ovary measures 2.0 x 1.0 x 0.9 CM on transabdominal ultrasound. There is no free fluid in cul-de-sac. There is mild bilateral pelvic venous congestion left greater than right. There are nabothian noted. US/US pelvic and transvaginal IMPRESSION: Unremarkable uterus. There is fluid within the endometrial canal similar to previous study with endometrial thickness of 0.39 cm minimally improved compared to 0.5 cm previously. There is mild bilateral pelvic congestion left greater than right. Small nabothian cysts in the cervix. Electronically signed by: Bigg Cooper MD 04/08/2024 05:18 PM EST Dictated By: Bigg Cooper MD Signed By: <Electronically signed by Bigg Cooper MD in OV> 04/08/24 1718 DD/ 1538 TD/TT: 04/08/24 1601 Head Turbine Operator: [facility] Vilma Zavala MD IMG US PROCEDURES Final Result * (ABNORMAL) POCT urinalysis dipstick manually resulted [...] Urine 02/18/2024 11:2 4 AM EST Result [facility] Victorina Mcgee MD POINT OF CARE TEST ENTER/EDIT OR DERABLES Final Result * Influenza B (ID NOW Rapid Molecular) (01/19/2024 2:06 PM EST) Influenza B Negative Negative, Indeterminate [facility] Swab 01/19/2024 2:06 PM EST Victorina Mcgee MD POINT OF CARE TEST ENTER/EDIT OR DERABLES Final Result Performing Organization Address City/[facility]/ZIP Co de Phone Number [facility] [address] [place] [phone] * Influenza A (ID NOW Rapid Molecular) (01/19/2024 2:05 PM EST) [facility] Influenza A Negative Negative, Indeterminate [facility] Swab 01/19/2024 2:05 PM EST Victorina Mcgee MD POINT OF CARE TEST ENTER/EDIT OR DERABLES Final Result Performing Organization Address [facility] Co de Phone Number [facility] [address] [place] [phone] * POCT Rapid COVID Ag (01/19/2024 2:04 PM EST) [facility] Rapid COVID Ag Negative Swab 01/19/2024 2:04 PM EST Result [facility] Victorina Mcgee MD POINT OF CARE TEST ENTER/EDIT OR DERABLES Final Result * Hepatitis C Antibody with Reflex to HCV, RNA, Quantitative, Real-Time PCR (09/23/2023 10:16 AM EDT) [facility] Hepatitis C Antibody Nonreactive Nonreactive [facility] Comment:Antibodies to HCV no t detected; does not exclude early acuteHCV infection. Blood Venous blood specimen / Unknown 09/23/2023 10:16 AM EDT 09/23/2023 11:42 AM EDT Vilma Zavala MD LAB BLOOD ORDERAB LES Final Result Performing Organization Address [facility]/ZIP Co de Phone Number [facility] [address] [place] [phone] * HIV-1/2 Antigen and Antibodies, Fourth Generation, with Reflexes (09/23/2023 10:16 AM EDT) HIV AB/AG Nonreactive Nonreactive [facility] Comment:HIV-1 p24 Ag and/or HIV-1/HIV-2 Ab not detected.A test result that is nonreactive does not exclude thepossibility of exposure to or infection with HIV-1 and/orHIV-2. Nonreactive results in this assay for individualswith prior exposure to HIV-1 and/or HIV-2 may be due toantigen and antibody levels that are below the limit ofdetection of this assay.The [employer] HIV Ag/Ab Combo assay result andsupplemental assay results should be interpreted inconjunction with the patient's clinical presentation,history and other laboratory results. If the results areinconsistent with clinical evidence, additional testing issuggested to confirm the result. Blood Venous blood specimen / Unknown 09/23/2023 10:16 AM EDT 09/23/2023 11:42 AM EDT us Vilma Zavala MD LAB BLOOD ORDERAB LES Final Result [facility] [address] [place] [phone] * (ABNORMAL) Lipid Panel, Standard (09/23/2023 10:16 AM EDT) Triglycerides 80 <150 mg/dL [facility] Comment:Desirable Triglyceri de: less than 150 mg/dLBorderline High Triglyceride 150-199 mg/dLHigh Triglyceride: 200-499 mg/dLVery High Triglyceride: greater than or equal to 5OO mg/dL Cholesterol 199 <200 mg/dL [facility] Comment:Desirable Cholestero l: less than 200 mg/dLBorderline High Cholesterol: 200-239 mg/dLHigh Cholesterol: greater than 239 mg/dL LDL Cholesterol Calculated 116(H) <100 mg/dL [facility] Comment:Desirable LDL: less than 100 mg/dLNear Optimal/Above Optimal LDL: 110- 129 mg/dLBorderline High LDL: 130-159 mg/dLHigh LDL: 160-189 mg/dLVery High LDL: greater than or equal to 190 mg/dL HDL Cholesterol 67 >40 mg/dL [facility] Comment:Desirable HDL: great er than 40 mg/dL Note: This HDL assay may give artificially low results in patients with liver disease. Blood Venous blood specimen / Unknown 09/23/2023 10:16 AM EDT 09/23/2023 11:42 AM EDT us Vilma Zavala MD LAB BLOOD ORDERAB LES Final Result [facility] [address] [place] [phone] [phone] * BI Mammogram Screening Tomosynthesis Bilateral (04/17/2023 12:46 PM EST) Anatomical Region Laterality Modality Breast Bilateral Mammography 04/17/2023 12:4 6 PM EST Narrative 04/28/2023 4:26 AM EDT ? [facility] ? [address] ?[place] [address] ? Mammography Report ? Signed ? Patient: Steinberg,Romi ?MR#: [id number] ? : 1960 ?Acct:[id number] ? Age/Sex: 63 / F ?ADM Date: //24 ? Loc: HO.MAMMO ? Attending Dr: Vilma Zavala MD ? Ordering Physician: Vilma Clifton MD ?Re ?? sults: 1Negative ? Date of Service: 04/17/23 ?Follow Up: 1 Year From Orig ?? inal Mammogram ? Procedure(s): MM tomosynthesis screening BI ?? Accession Number(s): [id number] ? cc: Vilma Clifton MD ? EXAMINATION: [...] by Antonia Waters MD in OV> ? 04/28/23 0423 ? DD/ 1246 ? TD/TT: ? Head Turbine Operator: ? Procedure Note Jessica, Image - 04/28/2023 [facility] [address] [place] [address] [place] [address] Mammography Report Signed Patient: Edmond Steinberg#: [id number] : 2Acct:[id number] Age/Sex: 63 / FADM Date: 04/17/23 Loc: HO.MAMMO Attending Dr: Vilma Zavala MD Ordering Physician: Vilma Clifton sults: 1Negative Date of Service: 04/17/23Follow Up: 1 Year From Orig inal Mammogram Procedure(s): MM tomosynthesis screening BI Accession Number(s): [id number] cc: Vilma Clifton MD EXAMINATION: MM SCREENING DIGITAL BREAST TOMOSYNTHESIS, BILATERAL CLINICAL INFORMATION: Screening. Asymptomatic. COMPARISON: Mammography: This study is compared with prior exams dating back to 2013. TECHNIQUE: Digital breast tomosynthesis is performed in [...] in OV> 04/28/23 0423 DD/ 1246 TD/TT: Head Turbine Operator: us Vilma Zavala MD IMG BI PROCEDURES [...] historic and ?? current clinical information. ?? [employer] Technician : [facility] Comment: RMM, CT(ASCP) CT screening location: [address] ??[phone] Infection Shift in vaginal sandoval suggestive of bacterial vaginosis. [facility] Interpretation/R esult: Negative for intraepithelial lesion or malignancy. [facility] LMP: NONE GIVEN [facility] Prev. BX: NONE GIVEN [facility] Prev. PAP: NONE GIVEN [facility] SOURCE: None given [facility] Statement Of Adequacy: [facility] Comment: Satisfactory for evaluation. Endocervical/transformation zone component present. 07/27/2020 4:28 PM EDT Megan De Los Santos MD LAB PATHOLOGY ORDERABLES Fin al Result [facility] [address] * HPV mRNA E6/E7 (07/27/2020 4:28 PM EDT) HPV nRNA E6/E7 Not Detected Not Detected [facility] Comment: Methodology: Front Office Agent-Mediated Amplification This assay detects E6/E7 viral messenger RNA (mRNA) from 14 high-risk HPV types (16,18,31,33,35,39,45,51,52,56,58,59,66,68). ? The analytical performance characteristics of this assay have been determined by [employer] The modifications have not been cleared or approved by the FDA. This assay has been validated pursuant to the CLIA regulations and is used for clinical purposes. ?? For additional information, please refer to http://education.[employer]/faq/QBR881g0 (This link if provided for information/ educational purposes only.) 07/27/2020 4:28 PM EDT us Megan De Los Santos MD LAB BLOOD ORDERABLES Final R esult [facility] [address] from Last 3 Months or Most Recently Relevant to Health Maintenance Insurance [employer] HMO Care Teams Dispute Specialist Relationship Specialty Start Date End Date Vilma Clifton MD [address] [place] [phone] PCP - General Internal Medicine 06/21/22
== END 2024-04-08 15:32 | disposition home or self-care (01) ==
LOC: HO.HMGCX 15:31
PROVIDERS: PCP Student in an Organized Health Care Education/Training Program; Visit Provider Student in an Organized Health Care Education/Training Program
DX: R93.89 Abnormal findings on diagnostic imaging of other specified body structures (principal)
CPT/HCPCS: 76830; 76856

== ENCOUNTER → 2024-04-08 15:34 | Outpatient (BNV) | payer BC, SELFPAY | PROVIDERS: PCP Student in an Organized Health Care Education/Training Program; Visit Provider Radiology Diagnostic Radiology | DX: N85.00 Endometrial hyperplasia, unspecified (principal) | CPT/HCPCS: 76830; 76856 ==

== ENCOUNTER 2024-04-16 08:06 | Day surgery (SDC) | payer BC, SELFPAY ==
--- OUTSIDE RECORDS SUMMARY | 2024-04-06 17:29 | XMS_ITS | Encounter Summary ---
Author Organization [employer] Address [address] [address] Care Team Providers Care Lamination Spinner Name Role Phone Vilma Clifton MD Primary Care Pro vider Reason for Visit * Reason Comments Med Refill Encounter Details Date Type Department Care Team (Late st Contact Info) Description 06/28/2023 Refill [facility] MED[facility] [address] [place], [place] [phone] Vilma Clifton MD [address] [place] [address] Primary hypertension Social History Tobacco Use Types Packs/Day Years Used Date Smoking Tobacco: Never Smokeless Tobacco: Never Alcohol Use Standard Drinks/Week Comments Yes 0 (1 standard drink = 0.6 oz pur e alcohol) social Depression Answer Date Recorded Patient Health Questionnaire-9 Score 3 07/22/2022 Housing Stability Answer Date Recorded What is your housing situation today? I have franklin smith 03/19/[address] you li ve. Do you have problems with any of the following? None of the above 03/19/2023 Food Insecurity Answer Date Recorded Within the past 12 months, y ou worried that your food would run out before you got money to buy more: Often true 03/19/2023 Within the past 12 months,th e food you bought just didn't last and you didn't have enough money to get more: Often true 08/2023 Transportation Answer Date Recorded In the past 12 months, has l ack of transportation kept you from medical appts, meetings, work or from getting things needed for daily living? No 11/26/2022 Utilities Answer Date Recorded In the past 12 months, has t he electric, gas, oil or water company threatened to shut off services in your home? No 11/26/2022 Depression Answer Date Recorded Patient Health Questionnaire-2 Score 0 07/22/2022 Comments Unknown Sex and Gender Information Value Date Recorded Sex Assigned at Female 12/10/2021 10:37 AM EDT Legal Sex Female 10:37 AM EDT Gender Identity Female 12/10/2021 10:37 AM EDT Sexual Orientation Straight 12/10/2021 10 :37 AM EDT documented as of this encounter Plan of Treatment Not on file documented as of this encounter Visit Diagnoses Diagnosis Primary hypertension Unspecified essential hypertension documented in this encounter Additional Health Concerns Assessment Noted Time PHQ-9 Depression Total Score: 3 07/23/19 23 11:03 AM EDT documented as of this encounter Care Teams Lamination Spinner Relationship Specialty Start Date End Date Vilma Clifton MD [address] [place] [id number] PCP - General Internal Medicine 06/21/22 documented as of this encounter
--- OUTSIDE RECORDS SUMMARY | 2024-04-06 17:29 | XMS_ITS | Clinical Summary ---
Author Organization [facility] Address [address] [place] [address] Care Team Providers Care Abrasive Band Winder Name Role Phone Unavailable Primary Care Provider Unavailabl e Social History Tobacco Use Types Packs/Day Years Used Date Smoking Tobacco: Never Assessed Comments Unknown Sex and Gender Information Value Date Recorded Sex Assigned at Not on file Legal Sex Female 4:36 AM EST Gender Identity Not on file Sexual Orientation Not on file Plan of Treatment Health Maintenance Due Date Last Done Comments DTaP,Tdap,and Td Vaccines (1 - Tdap) 1980 Cervical Cancer Screening: P ap Smear 1982 Pneumococcal Vaccine: 50+ Ye ars (1 of 1 - PCV) 2011 Zoster Vaccines (1 of 2) 2011 Breast Cancer Screening 06/03/2020 06/03/2018 COVID-19 Vaccine ( - 2023-2 5 season) 2023 Influenza Vaccine (#1) 2023 RSV Immunization Patients 60 + Years Old (1 - 1-dose 75+ series) 2036 HIB Vaccines Aged Out No longer eligi ble based on patient's age to complete this topic HPV Vaccines Aged Out No longer eligi ble based on patient's age to complete this topic Hepatitis A Vaccines Aged Out No long er eligible based on patient's age to complete this topic Hepatitis B Vaccines Aged Out No long er eligible based on patient's age to complete this topic IPV Vaccines Aged Out No longer eligi ble based on patient's age to complete this topic MMR Vaccines Aged Out No longer eligi ble based on patient's age to complete this topic Meningococcal ACWY Vaccine Aged Out N o longer eligible based on patient's age to complete this topic Meningococcal B Vacine Aged Out No lo nger eligible based on patient's age to complete this topic Pneumococcal Vaccine: Pediat rics (0 to 5 Years) and At-Risk Patients (6 to 64 Years) Aged Out No longer eligi ble based on patient's age to complete this topic RSV Immunization Patients Un yamileth 20 months Aged Out No longer eligible b ased on patient's age to complete this topic Varicella Vaccines Aged Out No longer eligible based on patient's age to complete this topic Procedures Procedure Name Priority Date/Time Associated Diagnosis Comments [facility] SCREENING DIGITAL Routine 06/03/2018 6:56 PM EDT Encounter for screening mammogram for malignant neoplasm of breast from Last 3 Months or Most Recently Relevant to Health Maintenance Results * [facility] SCREENING DIGITAL (06/03/2018 6:56 PM EDT) Anatomical Region Laterality Modality Mammography 06/03/2018 1:12 PM EDT Narrative 06/03/2018 6:56 PM EDT [facility] Diagnostic Imaging Department [address] [place] [id number] Patient: ??STEINBERG,ROMI ?/Age/Sex: 1960 - 58 - F Unit#: ??[id number] ? Location/Status: ??SPDIMAM/REG CLI ? Mnemonic/Ordering Site: ??DIGSC/SPMAM Ordering Physician: ??ANA REYNA [facility] Screening Digital - 06/03/18 - 1332 History: Bilateral breast cancer screening. Technique: ??Digital mammography. Conventional CC and MLO projections with tomosynthesis MLO views and computer aided detection. Comparison: [facility] [facility] 12/28/2013 and 04/09/2010. Findings: ?? Breast tissue consists of fatty and fibroglandular elements (category b density) bilaterally. There is no suspicious group of microcalcifications, mass, architectural distortion or suspicious change in breast tissue density. Impression: No evidence of malignancy. Breast cancer, if present, is more likely to be diagnosed at a smaller size and earlier stage with more frequent intervals of screening. ??Recommend annual or biennial mammography. BIRADS category 1; negative study, 3341F 28388, 72006 Note: Patient information entered into a reminder system with a target due date for the next mammogram: ??CPT II 7025F Dictating Physician: ??EHSAN LEAHY MD Electronically Signed by: ??EHSAN LEAHY MD Dic Date/Time: ??06/03/181854 Sign date/Time: ??06/03/181855 Procedure Note Ehsan Leahy MD - 01/29/2022 [facility] Diagnostic Imaging Department [address] [place] [address] Patient: ROMI STEINBERG /Age/Sex: 1960 - 58 - F Unit#: [id number] [facility]: [facility] Mnemonic/Ordering Site: [facility] Ordering Physician: ANA REYNA [facility] Screening Digital - 06/03/18 - 1332 History: Bilateral breast cancer screening. Technique: Digital mammography. Conventional CC and MLO projectionswith tomosynthesis MLO views and computer aided detection. Comparison: [facility] 12/28/2013 and 04/09/2010. Findings: Breast tissue consists of fatty and fibroglandular elements (category b density) bilaterally. There is no suspicious group of microcalcifications, mass, architectural distortion or suspicious changein breast tissue density. Impression: No evidence of malignancy. Breast cancer, if present, is more likely to be diagnosed at a smallersize and earlier stage with more frequent intervals of screening. Recommend annualor biennial mammography. BIRADS category 1; negative study, 3341F 07384, [address] Note: Patient information entered into a reminder system with a target duedate for the next mammogram: CPT II 7025F Dictating Physician: EHSAN LEAHY MD Electronically Signed by: EHSAN LEAHY MD Dic Date/Time: 06/03/181854 Sign date/Time: 06/03/181855 Ana CROOK IMG BI PROCEDURES Final Result from Last 3 Months or Most Recently Relevant to Health Maintenance
--- OUTSIDE RECORDS SUMMARY | 2024-04-06 17:29 | XMS_ITS | Encounter Summary ---
Author Organization [employer] Address [address] [place] [address] [address] [place] [address] Care Team Providers Care Iron Molder Helper Name Role Phone Vilma Clifton MD Primary Care Pro vider Encounter Details Date Type Department Care Team ([facility] st Contact Info) Description 04/10/2022 Orders Only [facility] [address] [place] [address] Catia Hassan LPN Social History Tobacco Use Types Packs/Day Years Used Date Smoking Tobacco: Never Smokeless Tobacco: Never Comments Unknown Sex and Gender Information Value Date Recorded Sex Assigned at Female 12/10/2021 10:37 AM EDT Legal Sex Female 10:37 AM EDT Gender Identity Female 12/10/2021 10:37 AM EDT Sexual Orientation Straight 12/10/2021 10 :37 AM EDT documented as of this encounter Plan of Treatment Not on file documented as of this encounter Visit Diagnoses Not on filedocumented in this encounter Care Teams Iron Molder Helper Relationship Specialty Start Date End Date Vilma Clifton MD [address] [place] [address] PCP - General Internal Medicine 06/21/22 documented as of this encounter
--- OUTSIDE RECORDS SUMMARY | 2024-04-06 17:29 | XMS_ITS | Clinical Summary ---
Author Organization [employer] Address [address] [facility] [address] [place] [address] Care Team Providers Care Bankruptcy Processor Name Role Phone Vilma Clifton MD Primary Care Pro vider Allergies No known active allergies Medications Blood Pressure Monitor kit 1 Device in the morning. 1 kit 03/27/2023 Active losartan-hydroC HLOROthiazide (Hyzaar) 100-12.5 MG tablet Take 1 tablet by mouth Once per day. 90 tablet 11/28/2023 Active traZODone (Desyrel) 50 MG tablet Take 1 tablet (50 mg) by mouth at bedtime. 90 tablet 1 11/28/2023 Active cholecalciferol (Vitamin D-3) 25 MCG (1000 UT) capsule Take 1 capsule (25 mcg) by mouth Once per day. 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 Hypertension 07/22/2022 Assessment & Plan (09/23/2022 8:08 PM EDT): BP wnl Baseline EKG today is normal ,QTC 412 07/2022 Microalb neg -continue BP med - Ophthalmology referred already -reports to have apt for this month ( pt with strabismus as well -reported as chronic will f w specialist as well) -f in 6 mo to monitor BP Assessment & Plan (07/22/2022 9:24 PM EDT): BP slightly elevated for diastolic - didn't take BP meds this morning - Advised to be consistent w meds - Ophthalmology referred today - Will obtain baseline EKG at future visit Healthcare maintenance 07/22/2022 Assessment & Plan (09/23/2022 8:02 PM EDT): -Menopause 45 y o -pap smear: 07/2020 neg/HPV -, from records here, to repeat in 5 y (07/2025) -MM 04/2022 : BIRADS 1-annual screening -colonoscopy: per pt 10 y ago w polyp, referred already-pd to get apt -[place] to check today status of referral -vaccines: S/P COVID x 2, Biv x1 , Tdap 2020, Shingrix s/p 1 dose today planned x 2nd dose at vaccine clinic , hep B immune Assessment & Plan (07/22/2022 9:29 PM EDT): Menopause 45 y o -pap smear: 07/2020 neg/HPV -, from records here, to repeat in 5 y (07/2025) -MM: 02/2021 BIRADS 1, per pt had one done in 03/2022 neg per pt ---- requested record to [facility] today -colonoscopy: per pt 10 y ago w polyp, referred today -vaccines: S/P COVID x 2, bivalent here today, Tdap 2020, advise Shingrix for pt to get at vaccine clinic -labs x annual exam today (had coffee this morning) -pt agreed to have STI testing including HIV to have for baseline -Pt w food insecurity, already spoke w case management rn prior to this apt ---- -Phlegm - will try Guaifenesin, if next visit still present, will eval for post- nasal drip Insomnia 07/22/2022 Assessment & Plan (09/23/2022 7:58 PM EDT): PHQ9 3 only due to insomnia, denies depression - Works until 9 pm, sleeps from 11 pm - 3 am and then wakes up multiple times - Tried melatonin before w no effect ,reports hydroxyzine is helping and taking prn - Sleep hygiene discussed, Hydroxyzine prn Assessment & Plan (07/22/2022 9:27 PM EDT): PHQ9 3 only due to insomnia, denies depression - Works until 9 pm, sleeps from 11 pm - 3 am and then wakes up multiple times - Tried melatonin before w no effect - Sleep hygiene discussed, will try Hydroxyzine, explained possible SE Overweight (BMI 25.0-29.9) 07/22/2022 Assessment & Plan (09/23/2022 7:59 PM EDT): Advised pt to improve diet and exercise,discussed healthy life style -discussed statistics teacher referral, refused today Assessment & Plan (07/22/2022 9:28 PM EDT): Advised pt to improve diet and exercise,discussed healthy life style -discussed statistics teacher referral, refused today Hematuria, unspecified 08/05/2019 Assessment & Plan (09/23/2022 8:05 PM EDT): As in freq of micturition problem Frequency of micturition 04/25/2019 Assessment & Plan (09/23/2022 8:04 PM EDT): Hx of urinary incontinence/hematuria -From urology records obtained : pt seen in 06/2022 with stress and urge incontinence,nocturia and microscopy hematuria -had 06/2022 UA w Again blood RBC 25 and renal US 06/2022 : Reported as normal -referred to PT-pelvic flood specialist referred by urologist -pd to schedule apt - started on myrbetriq 25 mg daily. ? Per pt not taking this med and is taking vesicare not helping -pt to f w urologist -pt will call to clarify plan -planned to have cystoscopy Assessment & Plan (07/22/2022 9:22 PM EDT): Hx of urinary incontinence/hematuria, f w urologist at [facility] per pt Pt states was referred by specialist for rehab of pelvic floor and plan for cystoscopy not done yet----- Advise pt to call her urologist and schedule f up for planned tests and procedure - Continue Solifenacin Encounters Date Type Department Care Team Description 03/03/2024 Telephone [facility] [address] [place] [address] Maria Artis MA Appointment 02/18/2024 11:20 AM EST Office Visit [facility] [address] [place] [address] Victorina Mcgee MD UTI symptoms 01/19/2024 2:00 PM EST Office Visit [facility] [address] [place] [address] Victorina Mcgee MD Acute bronchitis, unspecified organism (Primary Dx) from Last 3 Months Immunizations Name Administration Dates Next Due Influenza, seasonal, injectable, preservative fr ee 11/28/2023 Moderna Covid-19 Vaccine 6+ Bivalent 07/22/2022 Pfizer Covid-19 Vaccine 12+ 11/28/2023, 4 RSV Bivalent 09/26/2023 Tdap 01/24/2021 Zoster, Recombinant 09/23/2022,07/22/2022 Family History Medical History Relation Name Comments Diabetes Brother HTN,heart condition Maternal Grandmother No Known Problems Mother DM2 Mother's Brother Relation Name Status Comments Brother Maternal Grandmother Mother Mother's Brother Social History Tobacco Use Types Packs/Day Years Used Date Smoking Tobacco: Never Smokeless Tobacco: Never Tobacco Cessation:Counseling Given: Not Answered Alcohol Use Standard Drinks/Week Comments Yes 0 (1 standard drink = 0.6 oz pur e alcohol) social Depression Answer Date Recorded Patient Health Questionnaire-9 Score 0 08/08/2023 Patient Health Questionnaire-9 Score 0 08/08/2023 Last PHQ-9: Questionnaire Data Not on file 0 08/08/2023 Housing Stability Answer Date Recorded What is [...] the past 12 months, has t he [employer], gas, oil or water company threatened to shut off services in your home? No 11/26/2022 Depression Answer Date Recorded Patient Health Questionnaire-2 Score 0 08/08/2023 Comments Unknown Sex and Gender Information Value Date Recorded Sex Assigned at Female 12/10/2021 10:37 AM EDT Legal Sex Female 10:37 AM EDT Gender Identity Female 12/10/2021 10:37 AM EDT Sexual Orientation Straight 12/10/2021 10 :37 AM EDT Last Filed Vital Signs Vital Sign Reading Time Taken Comments Blood Pressure 108/73 02/18/2024 11:18 AM EST Pulse 77 02/18/2024 11:18 AM EST Temperature 36.7 ??C (98 ??F) 02/18/2024 11:18 AM EST Respiratory Rate 16 02/18/2024 11:18 AM EST Oxygen Saturation 96% 02/18/2024 11:18 AM EST Inhaled Oxygen Concentration - - Weight 67.1 kg (148 lb) 02/18/2024 11:18 AM EST Height 160 cm (5' 3 ) 11/28/2023 1:45 PM EDT Body Mass Index 26.22 11/28/2023 1:45 PM EDT Plan of Treatment Health Maintenance Due Date Last Done Comments CT Colonography 1960 Colonoscopy 1961 Colorectal Cancer Screening 1960 FIT DNA/Cologuard 1961 FIT 1961 FOBT 1960 Sigmoidoscopy 1961 Alcohol/Substance Use Screening 1973 Pneumococcal Vaccine: 50+ Years (1 of 1 - PCV) 2011 Dental Oral Exam 07/13/2021 01/11/2021 Dental Prophylaxis 07/28/2021 01/26/2021 Dental X-Ray: Bitewings 01/12/2022 01/11/2021 Dental X-Ray: Full Mouth 01/13/2024 01/11/2021 SDOH Screening 03/19/2024 03/19/2023 Depression Screening 08/07/2024 08/08/2023, 08/08/19 Tobacco Screening 11/27/2024 11/28/2023 Mammogram 04/16/2025 04/17/2023, 02/11, 07/07/2020 Cervical Cancer Screening 07/27/2025 HPV/Cotest 07/27/2025 07/27/2020 Pap Smear 07/27/2025 07/27/2020 Lipid Panel 09/22/2028 09/23/2023, 07/11, 08/24/2021 DTaP/Tdap/Td Vaccines (2 - Td or Tdap) 01/24/2031 01/24/2021 Zoster Vaccines Completed 09/23/2022, 07/22/2022 HIV Screening Completed 09/23/2023, 07/22/2022 Hepatitis C Screening Completed 09/23/2023 , 07/22/2022, 06/12/2020 RSV Patients and Patients Aged 60 years or older Completed 09/26/2023 COVID-19 Vaccine Completed 11/28/2023, , 07/22/2022, Additional history exists Influenza Vaccine Completed 11/28/2023 HIB Vaccines Aged Out No longer eligi [...] patient's age to complete this topic Meningococcal Vaccine Aged Out No mario anel eligible based on patient's age to complete this topic RSV under 20 months Aged Out No longe r eligible based on patient's age to complete this topic Rotavirus Vaccines Aged Out No longer eligible based on patient's age to complete this topic Procedures Procedure Name Priority Date/Time Associated Diagnosis Comments POCT URINALYSIS DIPSTICK Routine 02/18/2024 11:24 AM EST UTI symptoms POCT INFLUENZA B (ID NOW RAPID MOLECULAR) Routine 01/19/2024 2:06 PM EST Acute bronchitis, unspecified organism POCT INFLUENZA A (ID NOW RAPID MOLECULAR) Routine 01/19/2024 2:05 PM EST Acute bronchitis, unspecified organism POCT RAPID COVID ANTIGEN Routine 01/19/2024 2:04 PM EST Acute bronchitis, unspecified organism HEPATITIS C AB W/REFL TO HCV RNA, QN, PCR Routine 09/23/2023 10:16 AM EDT Annual physical exam HIV 1/2 ANTIGEN/ANTIBODY, FOURTH GENERATION W/RFL Routine 09/23/2023 10:16 AM EDT Annual physical exam LIPID PANEL, STANDARD Routine 09/23/2023 10:16 AM EDT Annual physical exam BI MAMMOGRAM SCREENING TOMOSYNTHESIS BILATERAL Routine 04/17/2023 12:46 PM EST PROPHYLAXIS - ADULT Routine 01/26/2021 1 2:00 AM EST INTRAORAL - COMPLETE SERIES OF RADIOGRAPHIC IMAGES Routine 01/11/2021 12:00 AM EST COMPREHENSIVE ORAL EVALUATION - NEW OR ESTABLISHED PATIENT Routine 01/11/2021 12:00 AM EST HPV MRNA E6/E7 Routine 07/27/2020 4:28 PM EDT THINPREP PAP Routine 07/27/2020 4:28 PM EDT from Last 3 Months or Most Recently Relevant to Health Maintenance Results * (ABNORMAL) POCT urinalysis dipstick manually resulted (02/18/2024 11:24 AM EST) Color, UA Yellow Clarity, UA Clear Glucose, UA Negative Bilirubin, UA Negative Ketones, UA Positive Comment:Trace Spec Grav, UA 1.025 Blood, UA Positive(A) Negative, None Detected Comment:Moderate pH, UA 6.5 Protein, UA 1+ 70+ Comment:30mg Urobilinogen, UA 0.2 Leukocytes, UA Moderate(A) Negative, Rare, Trace Nitrite, UA Negative Negative, None Detected Appearance, UA OK Urine 02/18/2024 11:2 4 AM EST Result [facility] Victorina Mcgee MD POINT OF CARE TEST ENTER/EDIT OR DERABLES Final Result * Influenza B (ID NOW Rapid Molecular) (01/19/2024 2:06 PM EST) [facility] Influenza B Negative Negative, Indeterminate [facility] Swab 01/19/2024 2:06 PM EST Result [facility] Victorina Mcgee MD POINT OF CARE TEST ENTER/EDIT OR DERABLES Final Result Performing Organization Address [facility] Phone Number [facility] [address] [place] [phone] * Influenza A (ID NOW Rapid Molecular) (01/19/2024 2:05 PM EST) [facility] Influenza A Negative Negative, Indeterminate [facility] Swab 01/19/2024 2:05 PM EST Result [facility] Victorina Mcgee MD POINT OF CARE TEST ENTER/EDIT OR DERABLES Final Result Performing Organization Address [facility] Phone Number [facility] [address] [place] [phone] * POCT Rapid COVID Ag (01/19/2024 2:04 PM EST) [facility] Rapid COVID Ag Negative Swab 01/19/2024 2:04 PM EST Result [facility] us Victorina Mcgee MD POINT OF CARE TEST ENTER/EDIT OR DERABLES Final Result * Hepatitis C Antibody with Reflex to HCV, RNA, Quantitative, Real-Time PCR (09/23/2023 10:16 AM EDT) Hepatitis C Antibody Nonreactive Nonreactive [facility] Comment:Antibodies to HCV no t detected; does not exclude early acuteHCV infection. Blood Venous blood specimen / Unknown 09/23/2023 10:16 AM EDT 09/23/2023 11:42 AM EDT Vilma Zavala MD LAB BLOOD ORDERAB LES Final Result Performing Organization Address [facility]/ZIP Co de Phone Number [facility] [address] [place] [phone] * HIV-1/2 Antigen and Antibodies, Fourth Generation, with Reflexes (09/23/2023 10:16 AM EDT) Pathologist [facility] HIV AB/AG Nonreactive Nonreactive [facility] Comment:HIV-1 p24 Ag and/or HIV-1/HIV-2 Ab not detected.A test result that is nonreactive does not exclude thepossibility of exposure to or infection with HIV-1 and/orHIV-2. Nonreactive results in this assay for individualswith prior exposure to HIV-1 and/or HIV-2 may be due toantigen and antibody levels that are below the limit ofdetection of this assay.The [employer] HIV Ag/Ab Combo assay result andsupplemental assay results should be interpreted inconjunction with the patient's clinical presentation,history and other laboratory results. If the results areinconsistent with clinical evidence, additional testing issuggested to confirm the result. Blood Venous blood specimen / Unknown 09/23/2023 10:16 AM EDT 09/23/2023 11:42 AM EDT Vilma Zavala MD LAB BLOOD ORDERAB LES Final Result Performing Organization Address [facility]/ZIP Co de Phone Number [facility] [address] [place] [phone] * (ABNORMAL) Lipid Panel, Standard (09/23/2023 10:16 AM EDT) Triglycerides 80 <150 mg/dL [facility] Comment:Desirable Triglyceri de: less than 150 mg/dLBorderline High Triglyceride 150-199 mg/dLHigh Triglyceride: 200-499 mg/dLVery High Triglyceride: greater than or equal to 5OO mg/dL Cholesterol 199 <200 mg/dL [facility] Comment:Desirable Cholestero l: less than 200 mg/dLBorderline High Cholesterol: 200-239 mg/dLHigh Cholesterol: greater than 239 mg/dL LDL Cholesterol Calculated 116(H) <100 mg/dL [facility] Comment:Desirable LDL: less than 100 mg/dLNear Optimal/Above Optimal LDL: 110- 129 mg/dLBorderline High LDL: 130-159 mg/dLHigh LDL: 160-189 mg/dLVery High LDL: greater than or equal to 190 mg/dL HDL Cholesterol 67 >40 mg/dL [facility] Comment:Desirable HDL: great er than 40 mg/dL Note: This HDL assay may give artificially low results in patients with liver disease. Blood Venous blood specimen / Unknown 09/23/2023 10:16 AM EDT 09/23/2023 11:42 AM EDT Vilma Zavala MD LAB BLOOD ORDERAB LES Final Result [facility] [address] [place] [phone] [phone] * BI Mammogram Screening Tomosynthesis Bilateral (04/17/2023 12:46 PM EST) Anatomical Region Laterality Modality Breast Bilateral Mammography 04/17/2023 12:4 6 PM EST Narrative 04/28/2023 4:26 AM EDT ? [facility] ? [address] ?[place] [address] ? Mammography Report ? Signed ? Patient: Steinberg,Romi ?MR#: [id number] ? : 1960 ?Acct:[id number] ? Age/Sex: 63 / F ?ADM Date: 04/16/24 ? Loc: HO.MAMMO ? Attending Dr: Vilma Zavala MD ? Ordering Physician: Vilma Clifton MD ?Re ?? sults: 1Negative ? Date of Service: 04/17/23 ?Follow Up: 1 Year From Orig ?? inal Mammogram ? Procedure(s): MM tomosynthesis screening BI ?? Accession Number(s): [id number] ? cc: Vilma Clifton MD ? EXAMINATION: ?? MM SCREENING DIGITAL BREAST TOMOSYNTHESIS, BILATERAL ? CLINICAL INFORMATION: ? Screening. Asymptomatic. ? COMPARISON: ?? Mammography: This study is compared with prior exams dating back to ?? 2013. ? TECHNIQUE: ?? Digital breast tomosynthesis is performed in both the craniocaudal and ?? mediolateral oblique views along with computer-aided detection (CAD). ?? Synthesized 2D images are generated from the tomosynthesis. ? FINDINGS: ?? There are scattered areas of fibroglandular density (ACR BI-RADS breast ?? composition Category b). ? There are no significant masses, abnormal calcifications, or other ?? abnormalities. ? MM/MM tomosynthesis screening BI ?? IMPRESSION: ?? No mammographic evidence of malignancy. ? ASSESSMENT: ? BI-RADS BI-RADS 1 - Negative ? RECOMMENDATION: ?? Routine annual mammography screening. ? 1 year F/U ? This examination should not preclude the clinical evaluation of a ?? suspicious palpable abnormality. ? This patient's information was entered into a reminder system with a ?? target due date for their next mammogram. ? Dictated By: ?Antonia Waters MD ? Signed By: ?<Electronically signed by Antonia Waters MD in OV> ? 04/27/ 0423 ? DD/ 1246 ? TD/TT: ? Plant Electrical Engineer: ? Procedure Note Donotuseinterpreter, Image - 04/28/2023 Tashi [facility] [address] [place], [place] [address] Mammography Report Signed Patient: Edmond Steinberg#: [id number] : 2Acct:[id number] Age/Sex: 63 / FADM Date: 04/17/23 Loc: [facility] Attending Dr: Vilma Zavala MD Ordering Physician: Vilma Clifton sults: 1Negative Date of Service: 04/17/23Follow Up: 1 Year From Orig inal Mammogram Procedure(s): MM tomosynthesis screening BI Accession Number(s): [id number] cc: Vilma Clifton MD EXAMINATION: MM SCREENING DIGITAL BREAST TOMOSYNTHESIS, BILATERAL CLINICAL INFORMATION: Screening. Asymptomatic. COMPARISON: Mammography: This study is compared with prior exams dating back to 2014. TECHNIQUE: Digital breast tomosynthesis is performed in both the craniocaudal and mediolateral oblique views along with computer-aided detection (CAD). Synthesized 2D images are generated from the tomosynthesis. FINDINGS: There are scattered areas of fibroglandular density (ACR BI-RADS breast composition Category b). There are no significant masses, abnormal calcifications, or other abnormalities. MM/MM tomosynthesis screening BI IMPRESSION: No mammographic evidence of malignancy. ASSESSMENT: BI-RADS BI-RADS 1 - Negative RECOMMENDATION: Routine annual mammography screening. 1 year F/U This examination should not preclude the clinical evaluation of a suspicious palpable abnormality. This patient's information was entered into a reminder system with a target due date for their next mammogram. Dictated By: Antonia Waters MD Signed By: <Electronically signed by Antonia Waters MD in OV> 04/28/23 0423 DD/ 1246 TD/TT: Plant Electrical Engineer: us Vilma Zavala MD IMG BI PROCEDURES Final Result * THINPREP PAP (07/27/2020 4:28 PM EDT) Clinical Information: None given [facility] COMMENT SEE COMMENT [facility] Comment: EXPLANATORY NOTE: ? The Pap is a screening test for cervical cancer. It is ?? not a diagnostic test and is subject to false negative ?? and false positive results. It is most reliable when a ?? satisfactory sample, regularly obtained, is submitted ?? with relevant clinical findings and history, and when ?? the Pap result is evaluated along with historic and ?? current clinical information. ?? Physicist [place] : SEE COMMENT [facility] Comment: RMM, CT(ASCP) CT screening location: [address] ??[id number] Infection Shift in vaginal sandoval suggestive of bacterial vaginosis. [facility] Interpretation/R esult: Negative for intraepithelial lesion or malignancy. [facility] LMP: NONE GIVEN [facility] Prev. BX: NONE GIVEN [facility] Prev. PAP: NONE GIVEN [facility] SOURCE: None given [facility] Statement Of Adequacy: SEE COMMENT [facility] Comment: Satisfactory for evaluation. Endocervical/transformation zone component present. 07/27/2020 4:28 PM EDT us Megan De Los Santos MD LAB PATHOLOGY ORDERABLES Fin al Result [facility] [address] * HPV mRNA E6/E7 (07/27/2020 4:28 PM EDT) HPV nRNA E6/E7 Not Detected Not Detected [facility] Comment: Methodology: [employer]-Mediated Amplification This assay detects E6/E7 viral messenger RNA (mRNA) from 14 high-risk HPV types (16,18,31,33,35,39,45,51,52,56,58,59,66,68). ? The analytical performance characteristics of this assay have been determined by [employer]. The modifications have not been cleared or approved by the FDA. This assay has been validated pursuant to the CLIA regulations and is used for clinical purposes. ?? For additional information, please refer to http://education.[employer]/faq/ZBL512c3 (This link if provided for information/ educational purposes only.) 07/27/2020 4:28 PM EDT Megan De Los Santos MD LAB BLOOD ORDERABLES Final R esult Performing Organization Address City/State/ZIP Co nc Phone Number [facility] [address] from Last 3 Months or Most Recently Relevant to Health Maintenance Insurance Care Teams Bankruptcy Processor Relationship Specialty Start Date End Date Vilma Clifton MD [address] [place] [phone] PCP - General Internal Medicine 06/21/22
--- OUTSIDE RECORDS SUMMARY | 2024-04-06 17:29 | XMS_ITS | Encounter Summary ---
Author Organization [employer] Address [address] [place] [address] [address] [place] [address] Care Team Providers Care Manager Professional Development Name Role Phone Megan De Los Santos MD Primary Care Provider Vilma Abbott MD Primary Care Pro vider Encounter Details Date Type Department Care Team (Latest Contact Info) Description 01/26/2021 Abstract [facility] CONVERSIONS Dental, Provider, DDS Social History Tobacco Use Types Packs/Day Years [...] on filedocumented in this encounter Care Teams Manager Professional Development Relationship Specialty Start Date End Date Megan De Los Santos MD PCP - General Family Medicine 04/06/20 12/26/21 Vilma Clifton MD [address] [place] [address] PCP - General Internal Medicine 06/21/22 documented as of this encounter
[2024-04-14 13:51] VITALS: BMI 25.2
[2024-04-16 09:08] VITALS: BP 124/80; PULSE 61; RESP 16; TEMP 36.1; O2SAT 98
[2024-04-16] MEDS: Lactated Ringers 1,000 ML 100 ML IVCONT (09:14)
--- NOTE | 2024-04-16 10:05 | MHC.SHP ---
Pre-Procedural Eval Section A - 24 Hr Update-Section A only Date of Service: 04/16/24 The patient is an INPATIENT: No The patient has been examined within 24 hours of the surgical procedure. The History & Physical has been completed within 30 days and I have reviewed it.: No Section B - Complete if H&P > 30 days Chief Complaint: Colon cancer screening Relevant Family History (Specify if Yes): No Relevant Social History: None Present Medications: see Short Stay Collaborative assessment Medical History: Significant History (Hypertension Insomnia Carpal tunnel syndrome Urinary incontinence/pelvic floor weakness Patellofemoral arthritis of the right knee Osteopenia) History of Previous Operations: Relevant previous surgery/procedure and date(s) (History of colonoscopy, history of ) Allergies: Allergies Allergy/AdvReac Type Severity Reaction Status Date / Time No Known Allergies Allergy Verified 10/31/23 13:14 Review of Systems Sugical H&P ROS: Negative: Constitution, Cardiovascular, Respiratory and Gastrointestinal Exam Surgical H&P Exam: Normal: Heart, Normal: Lungs, Normal: Extremities and Normal: Abdomen Plan Diagnosis/Plan: Unchanged I have reviewed the history and physical and performed a pertinent physical examination on my patient. No changes have occurred unless specified. Time Spent With Patient Time: Total time managing care of this patient today ____ minutes.
--- NOTE | 2024-04-16 10:06 | HO.ANESPROP2 ---
Documented by User: Yumi Villatoro NP 04/15/24 09:01 HPI - Anesthesia Eval Consult details Narrative: 64yo F for Colonoscopy PMFSH Active Problems Active Problems: All Active Problems Pre-op examination (Acute) Carpal tunnel syndrome on both sides (Acute) Insomnia (Acute) Hypertension (Acute) Microscopic hematuria (Acute) Pelvic floor weakness (Acute) Urgency of micturition (Acute) Urinary incontinence (Acute) Patellofemoral arthritis of right knee (Acute) Past Medical History Medical History Osteopenia Surgical History Surgical History H/O colonoscopy History of delivery Social History Social History Alcohol intake: current Alcohol intake frequency: holidays/special occasions only Patient Tobacco Use Status: Never used Tobacco Second Hand Smoke Exposure: No Use of substances other than those prescribed or required for medical reasons: Yes Substance Use Frequency: Occasionally Have you been hit, kicked, punched, or otherwise hurt by someone within the past year? If so, by whom?: No Are you DNR?: No Advance Directives: No Advance Directives Information Provided: Yes Advance Directives on File: No Recently lost weight without trying: No Eating poorly because of decreased appetite: No Nutrition Risks: No Nutritional Risk Patient : No : No Poor oral hygiene: No Current occupational status: employed Current occupation: paraprofessional, rt hand Meds Allergies Allergy/AdvReac Type Severity Reaction Status Date / Time No Known Allergies Allergy Verified 10/31/23 13:14 Home Medications ?Medication ?Instructions ?Recorded ?Confirmed ?Last Taken ?Type cholecalciferol (vitamin D3) 25 25 mcg PO DAILY 10/31/23 04/16/24 Unknown History mcg (1,000 unit) capsule losartan 100 1 tab PO DAILY 10/31/23 04/16/24 Unknown History mg-hydrochlorothiazide 12.5 mg tablet trazodone 50 mg tablet 50 mg PO BEDTIME 10/31/23 04/16/24 Unknown History Exam Height,Weight and Vital Signs: Height 5 ft 4 in Weight 66.678 kg Assessment and Plan Assessment Anesthesia Assessment: Chart Reviewed Documented by User: Yolette Lang DO 04/16/24 10:07 PMFSH Past Medical History Medical History Osteopenia Family History Family history of problems with anesthesia: No Surgical History Surgical History H/O colonoscopy History of delivery History of Problems with Anesthesia: No Social History Social History Alcohol intake: current Alcohol intake frequency: holidays/special occasions only Patient Tobacco Use Status: Never used Tobacco Second Hand Smoke Exposure: No Use of substances other than those prescribed or required for medical reasons: Yes Substance Use Frequency: Occasionally Have you been hit, kicked, punched, or otherwise hurt by someone within the past year? If so, by whom?: No Are you DNR?: No Advance Directives: No Advance Directives Information Provided: Yes Advance Directives on File: No Recently lost weight without trying: No Eating poorly because of decreased appetite: No Nutrition Risks: No Nutritional Risk Patient : No : No Poor oral hygiene: No Current occupational status: employed Current occupation: paraprofessional, rt hand Meds Allergies Allergy/AdvReac Type Severity Reaction Status Date / Time No Known Allergies Allergy Verified 10/31/23 13:14 Home Medications ?Medication ?Instructions ?Recorded ?Confirmed ?Last Taken ?Type cholecalciferol (vitamin D3) 25 25 mcg PO DAILY 10/31/23 04/16/24 Unknown History mcg (1,000 unit) capsule losartan 100 1 tab PO DAILY 10/31/23 04/16/24 Unknown History mg-hydrochlorothiazide 12.5 mg tablet trazodone 50 mg tablet 50 mg PO BEDTIME 10/31/23 04/16/24 Unknown History Exam Exam Date and Time: 04/16/24 1005 Height,Weight and Vital Signs: Height 5 ft 4 in Weight 66.678 kg Vital Signs Temperature 96.9 F 04/16/24 09:08 Pulse Rate 61 04/16/24 09:08 Respiratory Rate 16 04/16/24 09:08 Blood Pressure 124/80 04/16/24 09:08 Pulse Oximetry 98 04/16/24 09:08 Oxygen Delivery Method Room Air 04/16/24 09:08 Temperature 96.9 F 04/16/24 09:08 Pulse Rate 61 04/16/24 09:08 Respiratory Rate 16 04/16/24 09:08 Blood Pressure 124/80 04/16/24 09:08 Pulse Oximetry 98 04/16/24 09:08 Oxygen Delivery Method Room Air 04/16/24 09:08 Airway Mallampati Class: II TM Dist: >3cm Neck ROM: Full Loose/Missing/Broken Teeth: No (patient denies any loose or broken teeth) Heart: S1S2 Lungs: CTAB Assessment and Plan Assessment Anesthesia Assessment: Anesthesia Plan Discussed and Chart Reviewed Final Anesthetic Review Family History of Problems with Anesthesia: No History of Problems with Anesthesia: No NPO: Yes ASA Class: II Final Preanesthetic Review: No Changes in Pt Med Stat, Meds/Allgs Chart Reviewed, Consent Obtained/Reviewed and Anes Risks/Benef Reviewed Patient Risk: Low Procedure Risk: Low Anesthetic Plan Anesthetic Plan: MAC: and Agree w/ Assess. and Plan Disposition: Standard PACU
--- NOTE | 2024-04-16 10:51 | HO.OPN-COLON ---
Colonoscopy Operative Note Operative Note Date of Service: 04/16/24 Narrative: COLONOSCOPY TILL CECUM WITH BIOPSIES AND SNARE POLYPECTOMY Pre-op diagnosis: Colon cancer screening. Post-op diagnosis:? Colon polyps, Diverticulosis, hemorrhoids Endoscopist:? Valerio Joseph MD Anesthesia:?MAC Consent: Indications for the procedure and potential complications of bleeding, perforation, reaction to medications and missed diagnosis were discussed with the patient and informed consent was obtained. Instrument: Olympus PCF H 190 L variable stiffness pediatric colonoscope Monitoring: Vital signs and clinical assessment, intermittent blood pressure monitoring, continuous EKG monitoring, Pulse oximetry and Carbon Dioxide monitoring were done throughout the procedure. Please see anesthesia flowsheet. Colon withdrawl time was 17 minutes. Procedure: The patient was placed in the left lateral decubitis position and pre-procedure medications were administered. After a digital rectal examination of the ano-rectum, the video colonoscope was inserted into the rectum and advanced through the colon to the cecum. The colonoscope was slowly withdrawn in a retrograde panoramic fashion and the colon mucosa was carefully examined including a retroflexed view of the rectum. Findings and interventions are described below. Procedure Difficulty: Colon was long and tortuous and there was spasm and some loop formation Findings: Terminal Ileum: Not evaluated Cecum: Normal Ascending Colon: A 2-3 mm diminutive appearing polyp in the proximal ascending colon - removed with a cold biopsy. Transverse Colon: Normal Descending Colon: Normal Sigmoid Colon: Two 10-12 mm sessile polyps at 30 to 35 cms - removed with a hot snare. Moderate diverticulosis Rectum: Normal Ano-rectum: Normal Colon preparation: Good after copious irrigation. [place] Bowel Preparation Scale Right colon; 2 Transverse colon: 2 Left colon; 2 (0 = Unprepared colon segment with mucosa not seen due to solid stool that cannot be cleared. 1 = Portion of mucosa of the colon segment seen, but other areas of the colon segment not well seen due to staining, residual stool and/or opaque liquid. 2 = Minor amount of residual staining, small fragments of stool and/or opaque liquid, but mucosa of colon segment seen well. 3 = Entire mucosa of colon segment seen well with no residual staining, small fragments of stool or opaque liquid) Impression and Post Procedure Diagnosis: Colonoscopy Findings: One small and two medium sized polyps were removed Moderate diverticulosis seen in the sigmoid colon Plan: Pt has a FU appointment on 04/30/24 with Mayela Schwarz NP. Repeat Colonoscopy in 3-5 years if polyps are adenomatous and 10 year if polyps are hyperplastic. Above findings were reviewed with the patient and relevant handouts were given and the discharge area.
[2024-04-16 10:52] VITALS: BP 140/71; PULSE 81; RESP 20; TEMP 36.4; O2SAT 98
[2024-04-16 11:05] VITALS: BP 105/63; PULSE 67; RESP 20; O2SAT 98
[2024-04-16 11:20] VITALS: BP 127/80; PULSE 69; RESP 18; TEMP 36.1; O2SAT 98
== END 2024-04-16 12:32 | disposition home or self-care (01) ==
PROVIDERS: PCP Student in an Organized Health Care Education/Training Program; Visit Provider Internal Medicine Gastroenterology
PROC: 0DJD8ZZ Inspection of Lower Intestinal Tract, Via Natural or Artificial Opening Endoscopic (ICD-10-PCS; CPT 45378; principal; 2024-04-16 10:10)
DX: Z12.11 Encounter for screening for malignant neoplasm of colon (principal); K63.5 Polyp of colon; K57.30 Diverticulosis of large intestine without perforation or abscess without bleeding; K59.04 Chronic idiopathic constipation; I10 Essential (primary) hypertension; R32 Unspecified urinary incontinence; G47.00 Insomnia, unspecified; M85.80 Other specified disorders of bone density and structure, unspecified site; M17.11 Unilateral primary osteoarthritis, right knee; Z79.899 Other long term (current) drug therapy
CPT/HCPCS: 45385; 45380; 88305; J2003; J2704

== ENCOUNTER → 2024-04-16 08:06 | Outpatient (BNV) | payer BC, SELFPAY | PROVIDERS: PCP Student in an Organized Health Care Education/Training Program; Visit Provider Internal Medicine Gastroenterology | DX: Z12.11 Encounter for screening for malignant neoplasm of colon (principal); K63.5 Polyp of colon; K57.30 Diverticulosis of large intestine without perforation or abscess without bleeding | CPT/HCPCS: 45380; 45385 ==

== ENCOUNTER 2024-06-30 14:52 | Outpatient (AMB) | payer BC, SELFPAY ==
[2024-06-30 14:54] VITALS: BP 148/81; PULSE 74; O2SAT 98; BMI 24.8
--- NOTE | 2024-06-30 14:54 | A.OFFVIS_ITS ---
Vital Signs 06/30/24 14:54 Height 5 ft 4 in Weight 144 lb 9.972 oz BMI 24.8 BP 148/81 H Blood Pressure Location Lt brachial Position Sitting Pulse 74 Pulse Source Pulse Oximeter Pulse Oximetry (%) 98 Oxygen Delivery Method Room Air Intake Visit Reasons: s/p colonoscopy Intake Note: Pt presents to the office today for a s/p colonoscopy. Pt states she is overall feeling well. Allergies No Known Allergies Allergy (Verified 06/30/24 14:54) HPI HPI s/p colonoscopy: Details: Assessment & Plan (1) Pre-op examination: Code(s): Z01.818 - Encounter for other preprocedural examination Category: Medical Plan She had a prior colon[place] [facility] and she thinks, but is not sure, that polyps were removed. This was about 10-12 years ago. She suffers CIC and she tries to drink more water, but then she has to urinate more. She does not feel she needs more help. No upper GI problems. There are no prior problems with anesthesia or sedation. She denies any cardiac or respiratory problems. No ID problems. Her mother young and she does not know her hx, she dose not know of CRC or polyps. Orders: Orders Colonoscopy - GI Use Only Today Z01.818 - Encounter for other preprocedural examination Medications: New sod sulf-pot chloride-mag sulf 1.479-0.188- 0.225 gram (Sutab) PO PER PKG DIR for colonoscopy prep 24 tabs 0RF COLONOSCOPY 04/16/24 Findings: Terminal Ileum: Not evaluated Cecum: Normal Ascending Colon: A 2-3 mm diminutive appearing polyp in the proximal ascending colon - removed with a cold biopsy. Transverse Colon: Normal Descending Colon: Normal Sigmoid Colon: Two 10-12 mm sessile polyps at 30 to 35 cms - removed with a hot snare. Moderate diverticulosis Rectum: Normal Ano-rectum: Normal Impression and Post Procedure Diagnosis: Colonoscopy Findings: One small and two medium sized polyps were removed Moderate diverticulosis seen in the sigmoid colon Plan: Pt has a FU appointment on 04/30/24 with Mayela Schwarz NP. Repeat Colonoscopy in 3-5 years if polyps are adenomatous and 10 year if polyps are hyperplastic. Above findings were reviewed with the patient and relevant handouts were given and the discharge area. BIOPSY Received: 04/16/24 A. Colon, ascending, polyp: Polypoid colonic mucosa with no specific change on initial levels (see comment). B. Colon, sigmoid polyps: Hyperplastic polyps, two Comment: (A): Additional tissue levels pending; addendum to follow ADDENDUM REPORT Addendum Addendum #1 (A): Additional levels show colonic mucosa with a lymphoid aggregate and no other changes; no adenomatous dysplasia seen TODAY'S VISIT SHe is agreeable to a 10 year follow up. The procedure was well tolerated. The results were explained and the patient is agreeable to the follow-up interval as stated. The bowel pattern has returned to normal. Education was provided to tell any 1st degree relatives about their findings to be sure that they are screened by age 45. Educated that they will be put on a recall list when it is time for their repeat scope but should they move out of state or away from the hospital they will need to remember along with their primary to repeat the procedure in a timely fashion to avoid any adverse complications. [facility] Medical History (Updated 06/30/24 @ 15:01 by NA Mckeon) Pre-op examination Osteopenia Surgical History (Updated 06/30/24 @ 15:02 by NA Mckeon) H/O colonoscopy History of delivery Social History Alcohol intake: current Alcohol intake frequency: holidays/special occasions only Patient Tobacco Use Status: Never used Tobacco Second Hand Smoke Exposure: No Current occupational status: employed Current occupation: paraprofessional, rt hand Review of Systems Const Denies fatigue, Denies fever(s), Denies night sweats, Denies poor appetite and Denies weight loss ENT Reports Normal hearing present, Denies dental pain, Denies dysphagia, Denies hearing loss, Denies mouth pain, Denies odynophagia, Denies throat swelling, Denies tongue swelling and Reports other (Dentition adequate) Card Reports no additional complaints Resp Reports no additional complaints GI Details: Denies abdominal pain, Denies melena, Denies bloating, Denies hematochezia, Denies constipation, Denies GI cramping, Denies dysphagia, Denies excessive flatus, Denies early satiety, Denies heartburn, Denies diarrhea, Denies nausea, Denies odynophagia, Denies vomiting and Denies hematemesis Skin/Breast Denies pruritus, Denies lesions, Denies rash and Denies jaundice Neuro Reports Normal hearing present and Denies Abnormal speech present Endo Denies fatigue Aller/Immun Denies throat swelling and Denies tongue swelling Physical Exam Vital Signs: Last Vital Signs Pulse 74 06/30/24 14:54 BP 148/81 H 06/30/24 14:54 Pulse Ox 98 06/30/24 14:54 Oxygen Delivery Method Room Air 06/30/24 14:54 BMI result Body Mass Index 24.8 Const General: cooperative, no acute distress, well developed and well groomed Nutritional Appearance: average body habitus and well nourished Orientation/consciousness: oriented to person, oriented to place and oriented to time Limitations: No language barrier HEENT Head: Yes normocephalic and Yes atraumatic Eyes General: appearance normal, both eyes and all related structures Pupils: Equal, round and reactive pupils present Neck Neck: Yes normal visual inspection and Yes no lymphadenopathy Thyroid: Thyroid normal Resp Effort & Inspection: normal respiratory effort and able to speak in complete sentences Auscultation: clear to auscultation bilaterally Cardio Rate: regular rate Rhythm: regular rhythm Heart sounds: Normal, physiologic split S2 sound present Peripheral pulses: radial pulses present and posterior tibial pulses present GI Inspection: No distended and No Abdominal panniculus present Palpation (GI): Soft to palpation, nontender, no guarding, not rigid and No hepatosplenomegaly present Percussion: Yes normal to percussion Auscultation: normal bowel sounds Rectal Exam - Female: deferred Skin General skin exam: no rashes or lesions noted, turgor normal, skin not dry, no jaundice, No spider nevi and no striae Rashes: no rashes Nails: normal Neuro General: oriented to person, oriented to place and oriented to time Cranial nerves: Yes Equal, round and reactive pupils present and Yes Normal hearing present Speech: No Abnormal speech present Extrem General: Yes normal to inspection, No clubbing, No cyanosis and No edema Psych Appearance: grossly normal and well kempt Mental Status: mental status grossly normal Speech and movement: Normal speech and movement present Affect: normal affect Attitude: cooperative Thought process: Normal thought process present and not confabulating Thought content: Normal thought content present Insight: Good insight present (Psych) Judgement: Good judgement present (Psych) Results Reviewed Results Reviewed: COLONOSCOPY 04/16/24 Findings: Terminal Ileum: Not evaluated Cecum: Normal Ascending Colon: A 2-3 mm diminutive appearing polyp in the proximal ascending colon - removed with a cold biopsy. Transverse Colon: Normal Descending Colon: Normal Sigmoid Colon: Two 10-12 mm sessile polyps at 30 to 35 cms - removed with a hot snare. Moderate diverticulosis Rectum: Normal Ano-rectum: Normal Impression and Post Procedure Diagnosis: Colonoscopy Findings: One small and two medium sized polyps were removed Moderate diverticulosis seen in the sigmoid colon Plan: Pt has a FU appointment on 04/30/24 with Mayela Schwarz NP. Repeat Colonoscopy in 3-5 years if polyps are adenomatous and 10 year if polyps are hyperplastic. Above findings were reviewed with the patient and relevant handouts were given and the discharge area. BIOPSY Received: 04/16/24 A. Colon, ascending, polyp: Polypoid colonic mucosa with no specific change on initial levels (see comment). B. Colon, sigmoid polyps: Hyperplastic polyps, two Comment: (A): Additional tissue levels pending; addendum to follow ADDENDUM REPORT Addendum Addendum #1 (A): Additional levels show colonic mucosa with a lymphoid aggregate and no other changes; no adenomatous dysplasia seen Assessment & Plan Assessment & Plan (1) H/O colonoscopy: Comment: 2024= hyperplastic polyps only repeat in 10 years Code(s): Z98.890 - Other specified postprocedural states Category: Surgical Plan SHe is agreeable to a 10 year follow up. The procedure was well tolerated. The results were explained and the patient is agreeable to the follow-up interval as stated. The bowel pattern has returned to normal. Education was provided to tell any 1st degree relatives about their findings to be sure that they are screened by age 45. Educated that they will be put on a recall list when it is time for their repeat scope but should they move out of state or away from the hospital they will need to remember along with their primary to repeat the procedure in a timely fashion to avoid any adverse complications Coding Level of Care Code Est Pt Level 3 (80831) Diagnoses H/O colonoscopy Z98.890
--- OUTSIDE RECORDS SUMMARY | 2024-06-30 15:00 | XMS_ITS | Encounter Summary ---
Author Organization [employer] Address [address] [place] [id number] Care Team Providers Care Tail Edger Name Role Phone Vilma Clifton MD Primary Care Pro vider Reason for Visit * Reason Comments Med Refill Encounter Details Date Type Department Care Team ([facility] st Contact Info) Description 06/28/[address] [facility] MEDICINE [address] [place] [address] Vilma Clifton MD [address] [place] [address] Primary hypertension Social History Tobacco Use Types [...] as of this encounter Plan of Treatment Upcoming Encounters Date Type Department Care Team (Late st Contact Info) Description 08/09/2024 10:30 AM EDT Office Visit [facility] OPTOMETRY [address] [place] [address] Matt, Ratna, OD [address] [place] [address] 08/17/2024 9:15 AM EDT Office Visit [facility] MEDICINE [address] [place] [address] Vilma Clifton MD [address] [place] [address] documented as of this encounter Visit Diagnoses Diagnosis Primary hypertension Unspecified essential hypertension documented in this encounter Additional Health Concerns Assessment Noted Time PHQ-9 Depression Total Score: 3 07/23/19 23 11:03 AM EDT documented as of this encounter Care Teams Tail Edger Relationship Specialty Start Date End Date Vilma Clifton MD [address] [place] [address] PCP - General Internal Medicine 06/21/22 documented as of this encounter
--- OUTSIDE RECORDS SUMMARY | 2024-06-30 15:00 | XMS_ITS | Encounter Summary ---
Author Organization [employer] Address [address] [place] [address] [place], [place] [address] Care Team Providers Care On Site Soil Evaluator Name Role Phone Vilma Clifton MD Primary Care Pro vider Encounter Details Date Type Department Care Team (Late st Contact Info) Description 04/10/2022 Orders Only [facility] CHC MED & PEDS [address] [place] [address] Catia Hassan LPN Social History Tobacco Use [...] Description 08/09/2024 10:30 AM EDT Office Visit [facility] OPTOMETRY [address] [place] [address] Matt, Ratna, OD [address] [place] [address] 08/17/2024 9:15 AM EDT Office Visit [facility] MEDICINE [address] [place] [address] Vilma Clifton MD [address] [place] [address] documented as of this encounter Visit Diagnoses Not on filedocumented in this encounter Care Teams On Site Soil Evaluator Relationship Specialty Start Date End Date Vilma Clifton MD [address] [place] [address] PCP - General Internal Medicine 06/21/22 documented as of this encounter
--- OUTSIDE RECORDS SUMMARY | 2024-06-30 15:00 | XMS_ITS | Clinical Summary ---
Author Organization [facility] Address [address] [place] [address] Care Team Providers Care Ingot Stripper Name Role Phone Unavailable Primary Care Provider [...] - 2023-2 5 season) 2023 Influenza Vaccine (Season Ended) 2024 RSV Immunization Adult Patie nts (1 - 1-dose 75+ series) 2036 HIB [...] age to complete this topic Meningococcal B Vaccine Aged Out No l onger eligible based on patient's age to complete [...] Procedure Name Priority Date/Time Associated Diagnosis Comments [facility] SCREENING DIGITAL Routine 06/03/2018 6:56 PM EDT Encounter for screening mammogram for malignant neoplasm of breast from Last 3 Months or Most Recently Relevant to Health Maintenance Results * CAS SCREENING DIGITAL (06/03/2018 6:56 PM EDT) Anatomical Region Laterality Modality Mammography 06/03/2018 1:12 PM EDT Narrative 06/03/2018 6:[address] [facility] Diagnostic Imaging Department [address] [place] [address] Patient: ??STEINBERG,ROMI ?/Age/Sex: 1960 - 58 - F Unit#: ??[id number] ? Location/Status: ??SPDIMAM/REG CLI ? Mnemonic/Ordering Site: ??DIGSC/SPMAM Ordering Physician: ??ANA REYNA [facility] Screening Digital - 06/03/18 - 1332 History: [...] mammography. BIRADS category 1; negative study, 3341F 68536, [id number] Note: Patient information entered into a reminder system with a target due date for the next mammogram: ??CPT II 7025F Dictating Physician: ??EHSAN LEAHY MD Electronically Signed by: ??EHSAN LEAHY MD Dic Date/Time: ??06/03/181854 Sign date/Time: ??06/03/181855 Procedure Note Ehsan Leahy MD - 01/29/[address] [facility] Diagnostic Imaging Department [address] [place] [address] Patient: ROMI STEINBERG /Age/Sex: 1960 - 58 - F Unit#: [id number] Location/Status: [facility] Mnemonic/Ordering Site: [facility] Ordering Physician: ANA REYNA Cas [...] mammography. BIRADS category 1; negative study, 3341F 07700, [id number] Note: Patient information entered into a reminder system with a target duedate for the next mammogram: CPT II 7025F Dictating Physician: EHSAN LEAHY MD Electronically Signed by: EHSAN LEAHY MD Dic Date/Time: 06/03/181854 Sign date/Time: 06/03/181855 Ana CROOK IMG BI PROCEDURES Final Result from Last 3 Months or Most Recently Relevant to Health Maintenance
--- OUTSIDE RECORDS SUMMARY | 2024-06-30 15:00 | XMS_ITS | Encounter Summary ---
Author Organization [employer] Address [address] [facility] [address] [place] [address] Care Team Providers Care Tourism Radio Presenter Name Role Phone Vilma Clifton MD Primary Care Pro vider Encounter Details Date Type Department Care Team ([facility] st Contact Info) Description 04/18/2024 Orders Only [facility] CHC MED & PEDS [address] [place] [address] Provider, MD Surendra Social History Tobacco Use Types Packs/Day Years [...] Description 08/09/2024 10:30 AM EDT Office Visit [facility] OPTOMETRY [address] [place] [address] Ratna Gutierrez, OD [address] [place] [address] 08/17/2024 9:15 AM EDT Office Visit [facility] MEDICINE [address] [place] [address] Vilma Clifton MD [address] [place] [address] documented as of this encounter Procedures Procedure Name Priority Date/Time Associated Diagnosis Comments [facility] COLONOSCOPY Routine 04/16/2024 7:29 PM EST documented in this encounter Results * Hm Colonoscopy (04/16/2024 7:29 PM EST) Historical Provider HEALTH MAINTENANCE Final Result documented in this encounter Visit Diagnoses Not on filedocumented in this encounter Additional Health Concerns Assessment Noted Time PHQ-9 Depression Total Score: 0 08/08/19 24 2:15 PM EDT documented as of this encounter Care Teams Tourism Radio Presenter Relationship Specialty Start Date End Date Vilma Clifton MD [address] [place] [id number] PCP - General Internal Medicine 06/21/22 documented as of this encounter
--- OUTSIDE RECORDS SUMMARY | 2024-06-30 15:00 | XMS_ITS | Clinical Summary ---
Author Organization [employer] Address [address] [facility] [address] [place] [address] Care Team Providers Care Instructional Design Consultant Name Role Phone Vilma Clifton MD Primary Care Pro vider Allergies No known active allergies Medications Blood Pressure Monitor kit 1 Device in the morning. 1 kit 03/27/19 24 Active traZODone (Desyrel) 50 MG tablet Take 1 tablet (50 mg) by mouth at bedtime. 90 tablet 1 11/28/19 24 Active cholecalcifero l (Vitamin D-3) 25 MCG (1000 UT) capsule Take 1 capsule (25 mcg) by mouth Once per day. 90 capsule 1 11/28/19 24 Active azithromycin (Zithromax) 250 MG tablet Take 2 tabs day and then 1 tab daily 6 tablet 01/19/20 24 Active losartan-hydro CHLOROthiazide (Hyzaar) 100-12.5 MG tablet Take 1 tablet by mouth Once per day. 90 tablet 06/17/19 25 026 Active losartan-hydro CHLOROthiazide (Hyzaar) 100-12.5 MG tablet Take 1 tablet by mouth Once per day. 90 tablet 11/28/19 24 025 Discontinued(Re order (will not trigger notification to Pharmacy)) Active Problems Problem Noted Date Diagnosed Date [...] neg per pt ---- requested record to [facility] today -colonoscopy: per pt 10 y ago w polyp, referred today -vaccines: S/P COVID x 2, bivalent here today, Tdap 2020, advise Shingrix for pt to get at vaccine clinic -labs x annual exam today (had coffee this morning) -pt agreed to have STI testing including HIV to have for baseline -Pt w food insecurity, already spoke w case repairer prior to this apt ---- -Phlegm - [...] diet and exercise,discussed healthy life style -discussed project management intern referral, refused today Assessment & Plan (07/22/2022 9:28 PM EDT): Advised pt to improve diet and exercise,discussed healthy life style -discussed project management intern referral, refused today Hematuria, unspecified 08/05/2019 Assessment [...] of urinary incontinence/hematuria, f w urologist at [facility] per pt Pt states was referred by specialist for rehab of pelvic floor and plan for cystoscopy not done yet----- Advise pt to call her urologist and schedule f up for planned tests and procedure - Continue Solifenacin Encounters Date Type Department Care Team Description 06/16/2024 Refill [facility] CHC MED & PEDS [address] [place] [address] iVlma Clifton MD 05/21/2024 Telephone [facility] MEDICINE [address] [place] [phone] Vilma Clifton MD august05/18/2024 7:00 PM EDT Office Visit [facility] WALK-IN CENTER [address] [place] [phone] Antonio Haley MD Acute conjunctivitis of left eye, unspecified acute conjunctivitis type (Primary Dx) 05/18/2024 Travel 04/18/2024 Orders Only [facility] P[facility]S [address] [place] [address] Provider, MD Surendra from Last 3 Months Immunizations Immunization Administration Dates Next Due Influenza, seasonal, injectable, preservative fr ee 11/28/2023 Moderna Covid-19 Vaccine 6+ Bivalent 07/22/2022 Pfizer Covid-19 Vaccine 12+ 11/28/2023, RSV Bivalent 09/26/2023 Tdap 01/24/2021 Zoster, Recombinant 09/23/2022,07/22/2022 Family History Medical History Relation Name Comments Diabetes Brother HTN,heart condition Maternal Grandmother No Known Problems Mother DM2 Mother's Brother Relation Name Status Comments Brother Maternal Grandmother Mother Mother's Brother Social History Tobacco Use Types Packs/Day Years Used Date Smoking Tobacco: Never Passive Smoke Exposure: Never Smokeless Tobacco: Never Tobacco Cessation:Counseling Given: [...] Sign Reading Time Taken Comments Blood Pressure 125/74 05/18/2024 6:51 PM EDT Pulse 75 05/18/2024 6:51 PM EDT Temperature 36.7 ??C (98 ??F) 05/18/2024 6:51 PM EDT Respiratory Rate 20 05/18/2024 6:51 PM EDT Oxygen Saturation 98% 05/18/2024 6:51 PM EDT Inhaled Oxygen Concentration - - Weight 66 kg (145 lb 9.6 oz) 05/18/2024 6:51 PM EDT Height 160 cm (5' 3 ) 05/18/2024 6:51 PM EDT Body Mass Index 25.79 05/18/2024 6:51 PM EDT Plan of Treatment Upcoming Encounters Date Type Department Care Team (Late st Contact Info) Description 08/09/2024 10:30 AM EDT Office Visit [facility] OPTOMETRY [address] [place] [address] Matt, Megan, OD [address] [place] [address] 08/17/2024 9:15 AM EDT Office Visit [facility] MEDICINE [address] [place] [address] Vilma Clifton MD [address] [place] [address] Health Maintenance Due Date Last Done Comments CT Colonography 1961 FIT DNA/Cologuard 1961 FIT 1961 FOBT 1961 Sigmoidoscopy 1960 Disability Screening 1961 Alcohol/Substance Use Screening 1973 Pneumococcal Vaccine: 50+ Years (1 of 1 - PCV) 2011 Dental Oral Exam 07/13/2021 01/11/2021 Dental Prophylaxis 07/28/2021 01/26/2021 Dental X-Ray: Bitewings 01/12/2022 01/11/2021 Dental X-Ray: Full Mouth 01/13/2024 01/11/2021 SDOH Screening 03/19/2024 03/19/2023 Depression Screening 08/07/2024 08/08/2023, 08/08/19 24 Mammogram 04/16/2025 04/17/2023, 02/11, 07/07/2020 Tobacco Screening 05/18/2025 05/18/2024 Cervical Cancer Screening 07/27/2025 HPV/Cotest 07/27/2025 07/27/2020 Pap Smear 07/27/2025 07/27/2020 Lipid Panel 09/22/2028 09/23/2023, 07/11, 08/24/2021 DTaP/Tdap/Td Vaccines (2 - Td or Tdap) 01/24/2031 01/24/2021 Colonoscopy 04/16/2034 04/16/2024 Colorectal Cancer Screening 04/16/2034 Zoster Vaccines Completed 09/23/2022, 07/22/2022 HIV Screening [...] Procedure Name Priority Date/Time Associated Diagnosis Comments COLONOSCOPY Routine 04/16/2024 7:29 PM EST HEMATOXYLIN AND EOSIN STAIN Routine 04/16/2024 10:37 AM EST AMB REFERRAL TO GASTROENTEROLOGY Routine 04/16/2024 Colon cancer screening US PELVIS TRANSVAGINAL Routine 3:38 PM EST Increased endometrial stripe thickness HEPATITIS C AB W/REFL TO HCV RNA, [...] Recently Relevant to Health Maintenance Results * Hm Colonoscopy (04/16/2024 7:29 PM EST) us Historical Provider HEALTH MAINTENANCE Final Result * Hematoxylin and Eosin Stain (04/16/2024 10:37 AM EST) 04/16/2024 10:3 7 AM EST 04/16/2024 12:19 PM EST Narrative [facility] - 04/21/2024 9:20 AM EDT ----- ------- Name: Romi Steinberg ? Age/Sex: 64/F ? : 1960 Unit#: [id number] ?? Attend Dr: Valerio Joseph MD ?Re04/16/24 ?Status: DEP SDC ? Location: HO.SSS ?Disch: ? ----- ------- SPEC : [id number] ? RECD: 04/16/24 ? STATUS: ??SOUT ? REQ NUM: [id number] ? JOSE: 04/16/24-1037 ? SUBM DR: Valerio Joseph MD ? ENTERED: ??04/16/248 ?SP TYPE: Surgical ? OTHR DR: Vilma Clifton MD ORDERED: ??HE Stain/6, Gross Micro L4/2 ?Addendum Addendum ??1 ?Entered: 04/21/24 (A): ??Additional levels show colonic mucosa with a lymphoid aggregate and no other changes; no adenomatous dysplasia seen. Addendum Signed (signature on file) Chelsea Thompson 04/21/24919 ? ----- ------- ? Diagnosis ?? A. ??Colon, ascending, polyp: ??Polypoid colonic mucosa with no specific change on initial ?? levels (see comment). ? B. ??Colon, sigmoid polyps: ??Hyperplastic polyps, two ? Comment: ?? (A): ??Additional tissue levels pending; addendum to follow. ?Clinical History Pre-Op Dx: ??Colon cancer screening Post-Op Dx: Polyps, diverticulitis ?Microscopic Description Microscopic sections reviewed. ? Material Received ?? A. Ascending colon polyp ?? B Sigmoid polyps ? Gross Description Received in 2 parts. A. ??Received in formalin labeled ?ascending colon polyp? is a fragment of winters-white soft tissue measuring 0.3 cm in greatest dimension which is wrapped in lens paper and entirely submitted for microscopic examination, 1 piece in cassette A. ? CONTINUED ON NEXT PAGE ----- ------- Name: Romi Steinberg ? Age/Sex: 64/F ? : 1960 Unit#: [id number] ?? Attend Dr: Valerio Joseph MD ?Re04/16/24 ?Status: DEP SD ? Location: HO.SSS ?Disch: ? ----- ------- SPEC : [id number] ? RECD: 04/16/24-1218 ? STATUS: ??SOUT ? REQ NUM: [id number] ? JOSE: 04/16/24-1037 ? SUBM DR: Valerio Joseph MD ? ENTERED: ??04/16/24-8 ?SP TYPE: Surgical ? OTHR DR: Vilma Clifton MD ORDERED: ??HE Stain/6, Gross Micro L4/2 ? Gross Description ?(Continued) B. Received in formalin labeled ?sigmoid polyps? are 2 fragments of red-pink soft tissue measuring 0.7 and 0.8 cm in greatest dimension which are wrapped in lens paper and entirely submitted for microscopic examination, 2 pieces in cassette B. ([facility]) Copies To: ?? Valerio Joseph MD ?? [facility] ?? [address] ?? [place] [address] ?? [phone] ?? Vilma Clifton MD ?? [address] [facility] ?? [place] [address] ?? [phone] ----- ------- Signed (signature on file) Chelsea Thompson 04/19/241534 ? ----- ------- ? END OF REPORT ? us Generic External Data Provider LAB BLOOD ORDERAB LES Final Result [facility] [address] [place] [address] [phone] * Referral to Gastroenterology (04/16/2024) us Vilma Zavala MD OUTPATIENT REFERR AL ORDERABLES Final Result * US Pelvis Transvaginal (04/08/2024 3:38 PM EST) Anatomical Region Laterality Modality Pelvis Ultrasound 04/08/2024 3:38 PM EST Narrative 04/08/2024 5:21 PM EST ? [facility] ?[address] ? [place] [address] ? Ultrasound Report ? Signed ? Patient: Steinberg,Romi ?MR#: [id number] ? : 1960 ?Acct:[id number] ? Age/Sex: 64 / F ?ADM Date: 04/08/24 ? Loc: HO.HMGCX ? Attending Dr: Vilma Zavala MD ? Ordering Physician: Vilma Clifton MD ?? Date of Service: 04/08/24 ?? Procedure(s): US pelvic and transvaginal ?? Accession Number(s): [id number] ? cc: Vilma Clifton MD ? EXAMINATION: [...] 05:18 PM EST RP ? Dictated By: ?Bigg Cooper MD ? Signed By: ?<Electronically signed by Bigg Cooper MD in OV> ?04/08/24 1718 ? DD/ 1538 ? TD/TT: 04/08/24 1601 ? Seafood Team Member: MSM ? Procedure Note Donotuseinterpreter, Image - 04/08/2024 [facility] [place] [address] Ultrasound Report Signed Patient: Edmond Steinberg#: [id number] : 1960cct:[id number] Age/Sex: 64 / FADM Date: 04/08/24 [facility]: [facility] Attending Dr: Vilma Zavala MD Ordering Physician: Vilma Clifton MD Date of Service: 04/08/24 Procedure(s): US pelvic and transvaginal Accession Number(s): [id number] cc: Vilma Clifton MD EXAMINATION: US PELVIS [...] 04/08/24 1718 DD/ 1538 TD/TT: 04/08/24 1601 Seafood Team Member: ANN Vilma Zavala MD IMG US PROCEDURES Final Result * Hepatitis C Antibody with Reflex to HCV, RNA, Quantitative, Real-Time PCR (09/23/2023 10:16 AM EDT) Hepatitis C Antibody Nonreactive Nonreactive [facility] Comment:Antibodies to HCV no t detected; does not exclude early acuteHCV infection. Blood Venous blood specimen / Unknown 09/23/2023 10:16 AM EDT 09/23/2023 11:42 AM EDT Vilma Zavala MD LAB BLOOD ORDERAB LES Final Result [facility] [address] [place] [phone] * HIV-1/2 Antigen and Antibodies, Fourth Generation, with Reflexes (09/23/2023 10:16 AM EDT) HIV AB/AG Nonreactive Nonreactive [facility] Comment:HIV-1 p24 Ag and/or HIV-1/HIV-2 Ab not detected.A test result that is nonreactive does not exclude thepossibility of exposure to or infection with HIV-1 and/orHIV-2. Nonreactive results in this assay for individualswith prior exposure to HIV-1 and/or HIV-2 may be due toantigen and antibody levels that are below the limit ofdetection of this assay.The [employer] Alinity HIV Ag/Ab Combo assay result andsupplemental assay results should be interpreted inconjunction with the patient's clinical presentation,history and other laboratory results. If the results areinconsistent with clinical evidence, additional testing issuggested to confirm the result. Blood Venous blood specimen / Unknown 09/23/2023 10:16 AM EDT 09/23/2023 11:42 AM EDT us Vilma Zavala MD LAB BLOOD ORDERAB LES Final Result [facility] [address] [place], [place] [phone] * (ABNORMAL) Lipid Panel, Standard (09/23/2023 10:16 AM EDT) Triglycerides 80 <150 mg/dL [facility] Comment:Desirable Triglyceri de: less than 150 mg/dLBorderline High Triglyceride 150-199 mg/dLHigh Triglyceride: 200-499 mg/dLVery High Triglyceride: greater than or equal to 5OO mg/dL Cholesterol 199 <200 mg/dL [facility] Comment:Desirable Cholestero l: less than 200 mg/dLBorderline High Cholesterol: 200-239 mg/dLHigh Cholesterol: greater than 239 mg/dL LDL Cholesterol Calculated 116(H) <100 mg/dL [facility] Comment:Desirable LDL: less than 100 mg/dLNear Optimal/Above Optimal LDL: 110- 129 mg/dLBorderline High LDL: 130-159 mg/dLHigh LDL: 160-189 mg/dLVery High LDL: greater than or equal to 190 mg/dL HDL Cholesterol 67 >40 mg/dL [facility] Comment:Desirable HDL: great er than 40 mg/dL Note: This HDL assay may give artificially low results in patients with liver disease. Blood Venous blood specimen / Unknown 09/23/2023 10:16 AM EDT 09/23/2023 11:42 AM EDT us Vilma Zavala MD LAB BLOOD ORDERAB LES Final Result Performing Organization Address [facility]/State/ZIP Co de Phone Number [facility] [address] [facility] [place] [address] [phone] * BI Mammogram Screening Tomosynthesis Bilateral (04/17/2023 12:46 PM EST) Anatomical Region Laterality Modality Breast Bilateral Mammography 04/17/2023 12:4 6 PM EST Narrative 04/28/2023 4:26 AM EDT ? [facility] ? [address] ?[place] [address] ? Mammography Report ? Signed ? Patient: Steinberg,Romi ?MR#: [id number] ? : 1960 ?Acct:[id number] ? Age/Sex: 63 / F ?ADM Date: 04/17/23 ? Loc: HO.MAMMO ? Attending Dr: Vilma Zavala MD ? Ordering Physician: Vilma Clifton MD ?Re ?? sults: 1Negative ? Date of Service: 04/17/23 ?Follow Up: 1 Year From Orig ?? inal Mammogram ? Procedure(s): MM tomosynthesis screening BI ?? Accession Number(s): [id number] ? cc: Vilma Clifton MD ? EXAMINATION: [...] 0423 ? DD/ 1246 ? TD/TT: ? Seafood Team Member: ? Procedure Note Jessica, Image - 04/28/2023 [facility] [address] [place] [address] [place] [address] Mammography Report Signed Patient: Edmond Steinberg#: [id number] : 2Acct:[id number] Age/Sex: 63 / FADM Date: 04/17/23 Loc: [facility] Attending Dr: Vilma Zavala MD Ordering Physician: Vilma Clifton sults: 1Negative Date of Service: 04/17/23Follow Up: 1 Year From Orig ina Mammogram Procedure(s): MM tomosynthesis screening BI Accession Number(s): [id number] cc: Vilma Clifton MD EXAMINATION: MM SCREENING [...] in OV> 04/28/23 0423 DD/ 1246 TD/TT: Seafood Team Member: Vilma Zavala MD IMG BI PROCEDURES Final Result * THINPREP PAP (07/27/2020 4:28 PM EDT) Clinical Information: None given [facility] COMMENT SEE COMMENT [facility] [...] historic and ?? current clinical information. ?? Receiving Specialist : SEE COMMENT [facility] Comment: RMM, CT(ASCP) CT screening location: [address] ??[phone] Infection Shift in vaginal sandoval suggestive of bacterial vaginosis. [facility] Interpretation/R esult: Negative for intraepithelial lesion or malignancy. [facility] LMP: NONE [facility]IVEN [facility] Prev. BX: NONE GIVEN [facility] Prev. PAP: NONE GIVEN [facility] SOURCE: None given [facility] Statement Of Adequacy: SEE COMMENT [facility] Comment: Satisfactory for evaluation. Endocervical/transformation zone component present. 07/27/2020 4:28 PM EDT us Megan De Los Santos MD LAB PATHOLOGY ORDERABLES Fin al Result Performing Organization Address [facility] de Phone Number [facility] [address] * HPV mRNA E6/E7 (07/27/2020 4:28 PM EDT) HPV nRNA E6/E7 Not Detected Not Detected [facility] Comment: Methodology: Pumping Station Engineer-Mediated Amplification This assay detects E6/E7 viral messenger RNA (mRNA) from 14 high-risk HPV types (16,18,31,33,35,39,45,51,52,56,58,59,66,68). ? The analytical performance characteristics of this assay have been determined by [employer]. The modifications have not been cleared or approved by the FDA. This assay has been validated pursuant to the CLIA regulations and is used for clinical purposes. ?? For additional information, please refer to http://education.[employer]/faq/DSO645u2 (This link if provided for information/ educational purposes only.) 07/27/2020 4:28 PM EDT Megan De Los Santos MD LAB BLOOD ORDERABLES Final R esult Performing Organization Address [facility] de Phone Number [facility] [address] from Last 3 Months or Most Recently Relevant to Health Maintenance Insurance [facility] HMO Care Teams Instructional Design Consultant Relationship Specialty Start Date End Date Vilma Clifton MD [address] [place] [phone] PCP - General Internal Medicine 06/21/22
--- OUTSIDE RECORDS SUMMARY | 2024-06-30 15:00 | XMS_ITS | Encounter Summary ---
Author Organization [employer] Address [address] [place] [address] [address], [place] [address] Care Team Providers Care Washer Off Name Role Phone Megan De Los Santos MD Primary Care Provider Vilma Abbott MD Primary Care Pro vider Encounter Details Date Type Department Care Team (Latest Contact Info) Description 01/26/[address] [facility] CONVERSIONS Dental, Provider, DDS Social History [...] Description 08/09/2024 10:30 AM EDT Office Visit [facility] OPTOMETRY [address] [place] [address] Ratna Gutierrez, OD [address] [place] [address] 08/17/2024 9:15 AM EDT Office Visit [facility] MEDICINE [address] [place] [address] Vilma Clifton MD [address] [place] [address] documented as of this encounter Visit Diagnoses Not on filedocumented in this encounter Care Teams Washer Off Relationship Specialty Start Date End Date Megan De Los Santos MD PCP - General Family Medicine 04/06/20 12/26/21 Vilma Clifton MD [address] [place] [phone] PCP - General Internal Medicine 06/21/22 documented as of this encounter
== END 2024-06-30 15:17 | disposition home or self-care (01) ==
LOC: HO.HGI 14:53
PROVIDERS: PCP Student in an Organized Health Care Education/Training Program; Visit Provider Nurse Practitioner
DX: Z98.890 Other specified postprocedural states (principal)
CPT/HCPCS: 99213

== ENCOUNTER → 2024-06-30 14:52 | Outpatient (BNVA) | payer BC, SELFPAY | PROVIDERS: PCP Student in an Organized Health Care Education/Training Program; Visit Provider Nurse Practitioner ==

== ENCOUNTER 2024-08-17 17:22 | Outpatient (REF) | payer BC, SELFPAY ==
[2024-08-17 17:41] LABS: Appearance Urine Clear; Glucose Urine UA Negative (Negative); PH 6.5 (5.0-9.0); Specific Gravity - Urine 1.020 (1.005-1.025)
[2024-08-17 18:03] LABS: Microalbum/Creatinine Ratio Ur 6.0 ug/mg cr (<30)
[2024-08-17 21:54] LABS: Bacterial Vaginosis PCR NEGATIVE (Negative); Candida Group PCR NOT DETECTED (Not Detect); Candida glab krusei PCR NOT DETECTED (Not Detect); Trichomonas vaginalis PCR NOT DETECTED (Not Detect)
[2024-08-17 22:34] LABS: CT PCR NOT DETECTED (Not Detect.); NG PCR NOT DETECTED (Not Detect.)
== END 2024-08-17 17:23 | disposition home or self-care (01) ==
LOC: HO.HHCLNP 17:22
PROVIDERS: Visit Provider Student in an Organized Health Care Education/Training Program
DX: Z00.00 Encounter for general adult medical examination without abnormal findings (principal); Z11.3 Encounter for screening for infections with a predominantly sexual mode of transmission; N89.8 Other specified noninflammatory disorders of vagina; R35.0 Frequency of micturition
CPT/HCPCS: 81001; 81515; 82043; 82570; 87491; 87591

== ENCOUNTER 2024-10-13 11:42 | Outpatient (REF) | payer BC, SELFPAY ==
--- OUTSIDE RECORDS SUMMARY | 2024-10-13 18:00 | XMS_ITS | Encounter Summary ---
Author Organization [employer] Address [address] [facility] [facility] [address] [place] [address] Care Team Providers Care Supervisor Type Photography Name Role Phone Vilma Clifton MD Primary Care Pro vider Encounter Details Date Type Department Care Team ([facility] st Contact Info) Description 10/13/2024 6:00 PM EDT Office Visit [facility] [address] [place] [phone] Padmini Hernandez MD [address] [place] [phone] Hematuria, unspecified type (Primary Dx); Vaginal discharge; Acute vaginitis Social History Tobacco Use Types Packs/Day Years Used Date Smoking Tobacco: Never Passive Smoke Exposure: Never Smokeless Tobacco: Never Alcohol Use Standard Drinks/Week Comments Yes 0 (1 standard drink = 0.6 oz pur e alcohol) social Depression Answer Date Recorded Patient Health Questionnaire-9 Score 0 08/17/2024 Patient Health Questionnaire-9 Score 0 08/17/2024 Last PHQ-9: Questionnaire Data Not on file 0 08/17/2024 Housing Stability Answer Date Recorded What is your housing situation today? I have franklin smith 08/17/[address] you li ve. Do you have problems with any of the following? None of the above 08/17/2024 Food Insecurity Answer Date Recorded Within the past 12 months, y ou worried that your food would run out before you got money to buy more: Never True 08/17/2024 Within the past 12 months,th e food you bought just didn't last and you didn't have enough money to get more: Never True 09/2024 Transportation Answer Date Recorded In the past 12 months, has l ack of transportation kept you from medical appts, meetings, work or from getting things needed for daily living? No 08/17/2024 Utilities Answer Date Recorded In the past 12 months, has t he electric, gas, oil or water company threatened to shut off services in your home? No 08/17/2024 Depression Answer Date Recorded Patient Health Questionnaire-2 Score 0 08/17/2024 Internet Access Answer Date Recorded Internet Access Q1 Yes 08/17/2024 Internet Access Q2 Not on file 08/17/2024 Comments Unknown Sex and Gender Information Value Date Recorded Sex Assigned at Female 12/10/2021 10:37 AM EDT Legal Sex Female 10:37 AM EDT Gender Identity Female 12/10/2021 10:37 AM EDT Sexual Orientation Straight 12/10/2021 10 :37 AM EDT documented as of this encounter Last Filed Vital Signs Vital Sign Reading Time Taken Comments Blood Pressure 140/86 10/13/2024 6:28 PM EDT man ually Pulse 70 10/13/2024 6:15 PM EDT Temperature 37.2 C (98.9 F) 10/13/2024 6:15 PM EDT Respiratory Rate 18 10/13/2024 6:15 PM EDT Oxygen Saturation 95% 10/13/2024 6:15 PM EDT Inhaled Oxygen Concentration - - Weight 64.9 kg (143 lb 2 oz) 10/13/2024 6:15 PM EDT Height 160 cm (5' 3 ) 10/13/2024 6:15 PM EDT Body Mass Index 25.35 10/13/2024 6:15 PM EDT documented in this encounter Progress Notes * Zaria Anderson - 10/13/2024 6:00 PM EDT Subjective Romi Steinberg is a 64 y.o. female with past medical history of hypertension and urinary incontinence/hematuria f w urologist in the past here for evaluation of Burning around vagina with wiping and hot and discolored urine beginning a few days ago. Other associated symptoms include: none. Fever has been absent. Symptoms which are not present include: back pain, dysuria, urinary frequency, urinary urgency, and vaginal discharge. Antibiotic use within past three months: none. UTI history: -Seen for UTI sxs 1 month ago, culture with no growth, treated with fluconazole empirically for suspected yeast. Uro/mailing specialist hx: Hx of urinary incontinence/hematuria -From urology records obtained : pt seen in 06/2022 with stress and urge incontinence,nocturia and microscopy hematuria -had 06/2022 UA w Again blood RBC 25 and renal US 06/2022 : Reported as normal -CT Abdomen & Pelvis WO Cont 08/05/19 Normal appearance to the liver, spleen, pancreas, adrenalglands and kidneys. No renal calculi or hydronephrosis. -retroperitoneal US 08/26/23 : No renal mass, calcium hydronephrosis is seen bilaterally. There is a borderline increased postvoid residual volume. There is a small amount nonspecific free fluid within the endometrial canal. -referred to PT-pelvic floor clerk referred by urologist - apt f 10/2023 - never went -Started on myrbetriq 25 mg daily. ? Per pt not taking this med and is taking vesicare not helping ,also tried oxybutinin in the past w no effect -planned to have cystoscopy -referred to [facility] 08/17/24 for follow-up given abnormal pelvic US, had appt 09/15/24. Objective Visit Vitals BP (!) 140/86 (BP Location: Right arm, Patient Position: Sitting, BP Cuff Size: Adult) Comment: manually Pulse 70 Temp 98.9 ??F (37.2 ??C) (Oral) Resp 18 Ht 5' 3 (1.6 m) Wt 143 lb 2 oz (64.9 kg) SpO2 95% BMI 25.35 kg/m?? Smoking Status Never BSA 1.7 m?? Physical Exam Constitutional: Appearance: Normal appearance. Cardiovascular: Rate and Rhythm: Normal rate. Pulmonary: Effort: Pulmonary effort is normal. Genitourinary: Pubic Area: No rash. Labia: Right: No rash or lesion. Left: No rash or lesion. Urethra: No prolapse, urethral swelling or urethral lesion. Musculoskeletal: Cervical back: Normal range of motion. Neurological: Mental Status: She is alert. Psychiatric: Behavior: Behavior normal. Lab review Office Visit on 10/13/2024 Component Date Value Ref Range Status Color, UA 10/13/2024 Yellow Final Clarity, UA 10/13/2024 Clear Final Glucose, UA 10/13/2024 Negative Final Bilirubin, UA 10/13/2024 Negative Final Ketones, UA 10/13/2024 Negative Final Spec Grav, UA 10/13/2024 1.015 Final Blood, UA 10/13/2024 Positive (A) Negative, None Detected Final Trace-intact pH, UA 10/13/2024 7.5 Final Protein, UA 10/13/2024 Negative Final Urobilinogen, UA 10/13/2024 0.2 Final Leukocytes, UA 10/13/2024 Negative Negative, Rare, Trace Final Nitrite, UA 10/13/2024 Negative Negative, None Detected Final Appearance, UA 10/13/2024 clear Final QC Media Lot # 10/13/2024 [id number] Final Lot# Expiration Date 10/13/[phone] Final Assessment & Plan Vaginal discharge Urine dip negative except for positive blood. -Wet prep with SHIVA significant for mild budding yeast. No hyphae and no clue cells. -Treated with fluconazole last month with some relief. BV swabs negative 08/17/2024. -Has HIV labs ordered, encouraged to get it done. -Prescribed antifungal cream 10/13/24 -Discussed strategies to prevent future infections: Increase fluids. Urinate after sex. Avoid bladder irritants. -Advised to seek medical attention if no improvement or worsening of symptoms. -ER precautions reviewed. -Candidiasis prevention discussed. Orders: POCT Urinalysis Bacterial Vaginosis Chlamydia/N. Gonorrhoeae RNA, TMA, Vaginal clotrimazole (Lotrimin) 1 % vaginal cream; Insert one applicator per vagina at bedtime for 7 nights Hematuria, unspecified type Hx of urinary incontinence/hematuria -PCP placed referral to [facility] 08/17/24 for follow-up given abnormal pelvic US, had appt 09/15/24. -Encouraged to call and reschedule, given phone number 10/13/24 Future Appointments Date Time Provider Department Center 10/14/2024 11:30 AM Vilma Zavala MD MEDICINE [facility] I, Zaria Anderson, am serving as a scribe to document services personally performed by Dr. Crowell, based on the patient's response to questions by provider and providers statements to me. documented in this encounter Miscellaneous Notes * Assessment & Plan Note - Zaria Anderson - 10/13/2024 6:00 PM EDTAssociated Problem(s): Hematuria, unspecified Hx of urinary incontinence/hematuria -PCP placed referral to U[facility] 08/17/24 for follow-up given abnormal pelvic US, had appt 09/15/24. -Encouraged to call and reschedule, given phone number 10/13/24 documented in this encounter Plan of Treatment Scheduled Orders Name Type Priority Associated Diagnoses Orde r Schedule Bacterial Vaginosis Microbiology Routine Vaginal discharge Ordered: 10/13/2024 Chlamydia/N. Gonorrhoeae RNA, TMA, Vaginal Microbiology Routine Vaginal discharge Ordered: 10/13/2024 documented as of this encounter Procedures Procedure Name Priority Date/Time Associated Diagnosis Comments URINALYSIS, COMPLETE, WITH REFLEX TO CULTURE Routine 10/13/2024 6:36 PM EDT Hematuria, unspecified type POCT URINALYSIS DIPSTICK Routine 10/13/2024 6:25 PM EDT Vaginal discharge documented in this encounter Results * Urinalysis, Complete, with Reflex to Culture (10/13/2024 6:36 PM EDT) Color Urine Yellow [facility] Appearance Urine Clear [facility] PH 8.0 5.0 - 9.0 [facility] Glucose Urine UA Negative Negative mg/dL [facility] Urine Blood Negative Negative [facility] Specific [place] - Urine 1.010 1.005 - 1.025 [facility] Urine Protein Negative Neg-Trace mg/dL [facility] Urine Ketones Negative Negative mg/dL [facility] Nitrite Urine Negative Negative [facility] Leukocyte Esterase Urine Negative Negative [facility] RBC Urine 0-2 0 - 2 /HPF [facility] Urine WBC 0-5 0 - 5 /HPF [facility] Urine Squamous Epithelial Cell 0-2 0 - 2 /HPF [facility] Urine Bacteria None Seen None Seen [facility] Hyaline Casts, Urine 0-2 0 - 2 /LPF [facility] Urine Urine specimen obtained by clean catch procedure / Unknown 10/13/2024 6:36 PM EDT 10/14/2024 11:48 AM EDT Narrative [facility] - 10/14/2024 12:38 PM EDT Urine, Clean Catch Padmini Hernandez MD LAB URINE ORDERABLES Final Result [facility] [address] [place] [address] [phone] * (ABNORMAL) POCT Urinalysis (10/13/2024 6:25 PM EDT) Color, UA Yellow Clarity, UA Clear Glucose, UA Negative Bilirubin, UA Negative Ketones, UA Negative Spec Grav, UA 1.015 Blood, UA Positive(A) Negative, None Detected Comment:Trace-intact pH, UA 7.5 Protein, UA Negative Urobilinogen, UA 0.2 Leukocytes, UA Negative Negative, Rare, Trace Nitrite, UA Negative Negative, None Detected Appearance, UA clear QC Media Lot # [id number] Lot# Expiration Date ,026 Urine 10/13/2024 6:25 PM EDT Padmini Hernandez MD POINT OF CARE TEST ENTER/E DIT ORDERABLES Final Result documented in this encounter Visit Diagnoses Diagnosis Hematuria, unspecified type- Primary Vaginal discharge Leukorrhea, not specified as infective Acute vaginitis Unspecified vaginitis and vulvovaginitis documented in this encounter Additional Health Concerns Assessment Noted Time PHQ-9 Depression Total Score: 0 08/18/19 25 9:26 AM EDT documented as of this encounter Care Teams Supervisor Type Photography Relationship Specialty Start Date End Date Vilma Clifton MD [address] [place] [phone] PCP - General Internal Medicine 06/21/22 documented as of this encounter
[2024-10-14 12:13] LABS: Appearance Urine Clear; Glucose Urine UA Negative (Negative); PH 8.0 (5.0-9.0); Specific Gravity - Urine 1.010 (1.005-1.025)
--- OUTSIDE RECORDS SUMMARY | 2024-10-14 13:23 | XMS_ITS | Encounter Summary ---
Author Organization [employer] Address [address] [place] [id number] Care Team Providers Care Manager Lighting Name Role Phone Vilma Clifton MD Primary Care Pro vider Reason for Visit * Reason Comments Med Refill Encounter Details Date Type Department Care Team ([facility] st Contact Info) Description 06/28/2023 Refill [facility] [address] [place] [address] Vilma Clifton MD [address] [place] [address] Primary hypertension Social History Tobacco Use Types [...] documented as of this encounter Care Teams Manager Lighting Relationship Specialty Start Date End Date Vilma Clifton MD [address] [place] [phone] PCP - General Internal Medicine 06/21/22 documented as of this encounter
--- OUTSIDE RECORDS SUMMARY | 2024-10-14 13:23 | XMS_ITS | Clinical Summary ---
Author Organization [employer] Address [address] [facility] [address] [place] [address] Care Team Providers Care Housemaid Name Role Phone Vilma Clifton MD Primary Care Pro vider Allergies No known active allergies Medications Blood Pressure Monitor kit 1 Device in the morning. 1 kit 4 Active traZODone (Desyrel) 50 MG tablet Take 1 tablet (50 mg) by mouth at bedtime. 90 tablet 1 4 Active cholecalciferol (Vitamin D-3) 25 MCG (1000 UT) capsule Take 1 capsule (25 mcg) by mouth Once per day. 90 capsule 1 4 Active losartan-hydroCH LOROthiazide (Hyzaar) 100-12.5 MG tablet Take 1 tablet by mouth Once per day. 90 tablet 5 06/17/19 26 Active clotrimazole (Lotrimin) 1 % vaginal creamIndications :Vulvovaginal Candidiasis Insert one applicator per vagina at bedtime for 7 nights 45 g 5 Active Active Problems Problem Noted Date Diagnosed [...] -Pt w food insecurity, already spoke w rehabilitation case coordinator prior to this apt ---- -Phlegm - [...] diet and exercise,discussed healthy life style -discussed mri tech referral, refused today Assessment & Plan (07/22/2022 9:28 PM EDT): Advised pt to improve diet and exercise,discussed healthy life style -discussed mri tech referral, refused today Hematuria, unspecified 08/05/2019 Assessment & Plan (10/13/2024 6:34 PM EDT): Hx of urinary incontinence/hematuria -PCP placed referral to Uro/Certified Driver Examiner 08/17/24 for follow-up given abnormal pelvic US, had appt 09/15/24. -Encouraged to call and reschedule, given phone number 10/13/24 Assessment & Plan (09/23/2022 8:05 PM EDT): [...] of urinary incontinence/hematuria, f w urologist at [facility] per pt Pt states was referred by specialist for rehab of pelvic floor and plan for cystoscopy not done yet----- Advise pt to call her urologist and schedule f up for planned tests and procedure - Continue Solifenacin Encounters Date Type Department Care Team Description 10/13/2024 6:00 PM EDT Office Visit [facility] [address] [place] [phone] Padmini Hernandez MD Hematuria, unspecified type (Primary Dx); Vaginal discharge; Acute vaginitis 10/13/2024 Travel 09/09/2024 Telephone [facility] [address] [place] [phone] Vilma Clifton MD 08/17/2024 9:15 AM EDT Office Visit [facility] [address] [place] [phone] Vilma Clifton MD Breast cancer screening by mammogram (Primary Dx); Dietary counseling; Exercise counseling; Abnormal pelvic ultrasound; Urinary incontinence, unspecified type; Annual physical exam; Vaginal discharge; Urinary frequency; Hypertension, unspecified type; Overweight (BMI 25.0-29.9); Frequency of micturition; Hematuria, unspecified type; Healthcare maintenance; Increased endometrial stripe thickness 08/17/2024 Travel 08/16/2024 Telephone [facility] [address] [place] [address] Vilma Clifton MD chart prep 08/09/2024 10:30 AM EDT Office Visit [facility] [address] [place] [address] Matt, Ratna, OD Strabismic amblyopia of both eyes (Primary Dx); Early cataracts, bilateral; White without pressure of peripheral retina of both eyes; Presbyopia 08/09/2024 Patient Outreach [facility] [address] [place] [address] Vilma Clifton MD Pre-visit Planning ([facility] unable to reach [facility]) 08/09/2024 Travel 08/03/2024 Travel from Last 3 Months Immunizations Immunization Administration [...] is your housing situation today? I have franklinmaddie smith 08/17/[address] you [...] Mass Index 25.35 10/13/2024 6:15 PM EDT Plan of Treatment Health Maintenance Due Date Last Done Comments CT Colonography 1960 FIT DNA/Cologuard 1960 FIT 1960 FOBT 1960 Sigmoidoscopy 1960 Pneumococcal Vaccine: 50+ Years (1 of 1 - PCV) 2011 Dental Oral Exam 07/13/2021 01/11/2021 Dental Prophylaxis 07/28/2021 01/26/2021 Dental X-Ray: Bitewings 01/12/2022 01/11/2021 Dental X-Ray: Full Mouth 01/13/2024 01/11/2021 Influenza Vaccine (#1) 2024 11/28/2023 Mammogram 04/16/2025 04/17/2023, 02/11, 07/07/2020 Cervical Cancer Screening 07/27/2025 HPV/Cotest 07/27/2025 07/27/2020 Pap Smear 07/27/2025 07/27/2020 Alcohol/Substance Use Screening 08/17/2025 08/17/2024 Depression Screening 08/17/2025 08/17/2024, 08/18/19 Disability Screening 08/17/2025 08/17/2024 SDOH Screening 08/17/2025 08/17/2024 Tobacco Screening 10/13/2025 10/13/2024 Lipid Panel 09/22/2028 09/23/2023, 07/11, 08/24/2021 DTaP/Tdap/Td Vaccines (2 - Td or Tdap) 01/24/2031 01/24/2021 Colonoscopy 04/16/2034 04/16/2024 Colorectal Cancer Screening 04/16/2034 Zoster Vaccines Completed 09/23/2022, 07/22/2022 HIV Screening Completed 09/23/2023, 07/22/2022 Hepatitis C Screening Completed 09/23/2023 , 07/22/2022, 06/12/2020 RSV Patients and Patients Aged 60 years or older Completed 09/26/2023 COVID-19 Vaccine Completed 11/28/2023, , 07/22/2022, Additional history exists HIB Vaccines Aged Out No longer eligi [...] Routine 10/13/2024 6:25 PM EDT Vaginal discharge POCT URINALYSIS DIPSTICK Routine 08/17/2024 10:17 AM EDT Urinary frequency URINALYSIS, COMPLETE, WITH REFLEX TO CULTURE Routine 08/17/2024 10:00 AM EDT ALBUMIN, RANDOM URINE W/CREATININE Routine 08/17/2024 10:00 AM EDT Annual physical exam BACTERIAL VAGINOSIS PANEL Routine 08/17/2024 10:00 AM EDT CHLAMYDIA/N. GONORRHOEAE RNA, TMA, UROGENITAL Routine 08/17/2024 10:00 AM EDT Vaginal discharge HM COLONOSCOPY Routine 04/16/2024 7:29 PM EST HEPATITIS C AB W/REFL TO HCV RNA, [...] Recently Relevant to Health Maintenance Results * Urinalysis, Complete, with Reflex to Culture (10/13/2024 6:36 PM EDT) Only the most recent of2 resultswithin the time period is included. Color Urine Yellow [facility] Appearance Urine Clear [facility] PH 8.0 5.0 - 9.0 [facility] Glucose Urine UA Negative Negative mg/dL [facility] Urine Blood Negative Negative [facility] Specific Wright - Urine 1.010 1.005 - 1.025 [facility] Urine Protein Negative Neg-Trace mg/dL [facility] Urine Ketones Negative Negative mg/dL [facility] Nitrite Urine Negative Negative [facility] Leukocyte Esterase Urine Negative Negative [facility] RBC Urine 0-2 0 - 2 /HPF [facility] Urine WBC 0-5 0 - 5 /HPF [facility] Urine Squamous Epithelial Cell 0-2 0 - 2 /HPF [facility] Urine Bacteria None Seen None Seen [facility] Hyaline Casts, Urine 0-2 0 - 2 /LPF [facility] Urine Urine specimen obtained by clean catch procedure / Unknown 10/13/2024 6:36 PM EDT 10/14/2024 11:48 AM EDT Narrative [facility] - 10/14/2024 12:38 PM EDT Urine, Clean Catch Padmini Hernandez MD LAB URINE ORDERABLES Final Result [facility] [address] [place] [address] [phone] * (ABNORMAL) POCT Urinalysis (10/13/2024 6:25 PM EDT) Only the most recent of2 resultswithin the time period is included. Color, UA Yellow Clarity, UA Clear Glucose, UA Negative Bilirubin, UA Negative Ketones, UA Negative Spec Grav, UA 1.015 Blood, UA Positive(A) Negative, None Detected Comment:Trace-intact pH, UA 7.5 Protein, UA Negative Urobilinogen, UA 0.2 Leukocytes, UA Negative Negative, Rare, Trace Nitrite, UA Negative Negative, None Detected Appearance, UA clear QC Media Lot # [id number] Lot# Expiration Date Urine 10/13/2024 6:25 PM EDT Padmnii Hernandez MD POINT OF CARE TEST ENTER/E DIT ORDERABLES Final Result * Bacterial Vaginosis (08/17/2024 10:00 AM EDT) TRICHOMONAS VAGINALIS DETECTION BY PCR NOT DETECTED Not Detect [facility] BACTERIAL VAGINOSIS DETECTION BY PCR NEGATIVE Negative [facility] Comment:The BV organism targ ets of the Xpert Xpress MVP test can becommensal in women; Xpert Xpress MVP positive results forbacterial vaginosis should be considered in conjunction withother clinical and patient information to determine thedisease status. Organisms that are not detected by the XpertXpress MVP test have also been reported to be associatedwith BV and aerobic vaginitis.The Xpert Xpress MVP test performance has not been evaluatedin patients under the age of 14. RACHEL GROUP DETECTION BY PCR NOT DETECTED Not Detect [facility] Rachel glab krusei PCR NOT DETECTED Not Detect [facility] 08/17/2024 10:0 0 AM EDT 08/17/2024 5:25 PM EDT Vilma Zavala MD LAB MICROBIOLOGY - GENERAL ORDERABLES Final Result [facility] [address] [place] [phone] * Albumin, Random Urine W/Creatinine (08/17/2024 10:00 AM EDT) Creatinine, Urine 196.81 mg/dL [facility] Microalbumin Urine 12.0 mg/L [facility] Microalbum Creatinine Ratio Ur 6.0 <30 ug/mg cr [facility] Comment:Albumin/Creatinine R atio Reference Ranges: Normal: < 30 ug/mg creatinine Microalbuminuria: 30 - 300 ug/mg creatinineClinical Albuminuria: > 300 ug/mg creatinine Urine (Urine, Random) 08/17/2024 10:00 AM EDT 08/17/2024 5:26 PM EDT Vilma Zavala MD LAB URINE ORDERAB LES Final Result [facility] [address] [place] [phone] [phone] * Chlamydia/N. Gonorrhoeae RNA, TMA, Urogenitial (08/17/2024 10:00 AM EDT) CT PCR NOT DETECTED Not Detect. [facility] Comment:A not detected test result does not exclude the possibilityof infection because test results can be affected byimproper specimen collection, concurrent antibiotic therapy,or the number of organisms in the specimen which may bebelow the sensitivity of the test. As with many diagnostictests, results from the Xpert CT/NG assay should beinterpreted in conjunction with other laboratory andclinical data available to the clinician.Xpert CT/NG performance has not been evaluated in patientsless than 14 years of age. The assay should not be used forthe evaluationof suspected sexual abuse or for other medico-legalindications. Additional testing is recommended in anycircumstance when false positive or false negative resultscould lead to adverse medical, social or psychologicalconsequences. NG PCR NOT DETECTED Not Detect. [facility] Comment:A not detected test result does not exclude the possibilityof infection because test results can be affected byimproper specimen collection, concurrent antibiotic therapy,or the number of organisms in the specimen which may bebelow the sensitivity of the test. As with many diagnostictests, results from the Xpert CT/NG assay should beinterpreted in conjunction with other laboratory andclinical data available to the clinician.Xpert CT/NG performance has not been evaluated in patientsless than 14 years of age. The assay should not be used forthe evaluationof suspected sexual abuse or for other medico-legalindications. Additional testing is recommended in anycircumstance when false positive or false negative resultscould lead to adverse medical, social or psychologicalconsequences. Swab (Vaginal Swab) 08/17/2024 10:00 AM EDT 08/17/2024 5:26 PM EDT Vilma Zavala MD LAB MICROBIOLOGY - GENERAL ORDERABLES Final Result Performing Organization Address [facility] Co de Phone Number [facility] [address] [place] [address] [phone] * Hm Colonoscopy (04/16/2024 7:29 PM EST) Surendra Provider HEALTH MAINTENANCE Final Result * Hepatitis C Antibody with Reflex to HCV, RNA, Quantitative, Real-Time PCR (09/23/2023 10:16 AM EDT) Pathologist [facility] Hepatitis C Antibody Nonreactive Nonreactive [facility] Comment:Antibodies to HCV no t detected; does not exclude early acuteHCV infection. Blood Venous blood specimen / Unknown 09/23/2023 10:16 AM EDT 09/23/2023 11:42 AM EDT Vilma Zavala MD LAB BLOOD ORDERAB LES Final Result Performing Organization Address [facility] Co de Phone Number [facility] [address] [place] [phone] * HIV-1/2 Antigen and Antibodies, Fourth Generation, with Reflexes (09/23/2023 10:16 AM EDT) HIV AB/AG Nonreactive Nonreactive [facility] Comment:HIV-1 p24 Ag and/or HIV-1/HIV-2 Ab not detected.A test result that is nonreactive does not exclude thepossibility of exposure to or infection with HIV-1 and/orHIV-2. Nonreactive results in this assay for individualswith prior exposure to HIV-1 and/or HIV-2 may be due toantigen and antibody levels that are below the limit ofdetection of this assay.The Next Gen IlluminationniSynup HIV Ag/Ab Combo assay result andsupplemental assay results should be interpreted inconjunction with the patient's clinical presentation,history and other laboratory results. If the results areinconsistent with clinical evidence, additional testing issuggested to confirm the result. Blood Venous blood specimen / Unknown 09/23/2023 10:16 AM EDT 09/23/2023 11:42 AM EDT us Vilma Zavala MD LAB BLOOD ORDERAB LES Final Result [facility] [address] [place] [phone] * (ABNORMAL) Lipid Panel, Standard (09/23/2023 10:16 AM EDT) Triglycerides 80 <150 mg/dL [facility] Comment:Desirable Triglyceri de: less than 150 mg/dLBorderline High Triglyceride 150-199 mg/dLHigh Triglyceride: 200-499 mg/dLVery High Triglyceride: greater than or equal to 5OO mg/dL Cholesterol 199 <200 mg/dL [facility] Comment:Desirable Cholestero l: less than 200 mg/dLBorderline High Cholesterol: 200-239 mg/dLHigh Cholesterol: greater than 239 mg/dL LDL Cholesterol Calculated 116(H) <100 mg/dL [facility] Comment:Desirable LDL: less than 100 mg/dLNear Optimal/Above Optimal LDL: 110- 129 mg/dLBorderline High LDL: 130-159 mg/dLHigh LDL: 160-189 mg/dLVery High LDL: greater than or equal to 190 mg/dL HDL Cholesterol 67 >40 mg/dL [facility] Comment:Desirable HDL: great er than 40 mg/dL Note: This HDL assay may give artificially low results in patients with liver disease. Blood Venous blood specimen / Unknown 09/23/2023 10:16 AM EDT 09/23/2023 11:42 AM EDT us Vilma Zavala MD LAB BLOOD ORDERAB LES Final Result [facility] [address] [place] [phone] [phone] * BI Mammogram Screening Tomosynthesis Bilateral (04/17/2023 12:46 PM EST) Anatomical Region Laterality Modality Breast Bilateral Mammography 04/17/2023 12:4 6 PM EST Narrative 04/28/2023 4:26 AM EDT [address] [place] [address] Mammography Report Signed Patient: Romi Steinberg MR#: [id number] : 1960 Acct:[id number] Age/Sex: 63 / F ADM Date: 04/17/23 Loc: HO.MAMMO Attending Dr: Vilma Zavala MD Ordering Physician: Vilma Clifton MD Re sults: 1Negative Date of Service: 04/17/23 Follow Up: 1 Year From Orig ina Mammogram Procedure(s): MM tomosynthesis screening BI Accession Number(s): [id number] cc: Vilma Clifton MD EXAMINATION: MM SCREENING [...] signed by Antonia Waters MD in OV> 04/28/23422 DD/ 1246 TD/TT: Water Resource Specialist: Procedure Note Donotuseinterpreter, Image - [facility] [address] [place] [address] Mammography Report Signed Patient: Edmond Steinberg#: [id number] : 2Acct:[id number] Age/Sex: 63 / FADM Date: 04/17/23 Loc: RADHA Attending Dr: Vilma Zavala MD Ordering Physician: Vilma Clifton sults: 1Negative Date of Service: 04/17/23Follow Up: 1 Year From Orig inal Mammogram Procedure(s): MM tomosynthesis screening BI Accession Number(s): [id number] cc: Vilma Clifton MD EXAMINATION: MM SCREENING [...] signed by Antonia Waters MD in OV> 04/28/23422 DD/ 1246 TD/TT: Water Resource Specialist: us Vilma Zavala MD IMG BI PROCEDURES Final Result * THINPREP PAP (07/27/2020 4:28 PM EDT) Clinical Information: None given [facility] COMMENT SEE COMMENT [facility] Comment: EXPLANATORY NOTE: The Pap is a screening test for cervical cancer. It is not a diagnostic test and is subject to false negative and false positive results. It is most reliable when a satisfactory sample, regularly obtained, is submitted with relevant clinical findings and history, and when the Pap result is evaluated along with historic and current clinical information. Axle Inspector : SEE COMMENT [facility] Comment: RMM, CT(ASCP) CT screening location: [place] [address] Infection Shift in vaginal sandoval suggestive of bacterial vaginosis. [facility] Interpretation/R esult: Negative for intraepithelial lesion or malignancy. [facility] LMP: NONE GIVEN [facility] Prev. BX: NONE GIVEN [facility] Prev. PAP: NONE GIVEN [facility] SOURCE: None given [facility] Statement Of Adequacy: SEE COMMENT [facility] Comment: Satisfactory for evaluation. Endocervical/transformation zone component present. 07/27/2020 4:28 PM EDT us Megan De Los Santos MD LAB PATHOLOGY ORDERABLES Fin al Result [facility] [address] * HPV mRNA E6/E7 (07/27/2020 4:28 PM EDT) HPV nRNA E6/E7 Not Detected Not Detected [facility] Comment: Methodology: Tobacco Sprayer-Mediated Amplification This assay detects E6/E7 viral messenger RNA (mRNA) from 14 high-risk HPV types (16,18,31,33,35,39,45,51,52,56,58,59,66,68). The analytical performance characteristics of this assay have been determined by [employer]. The modifications have not been cleared or approved by the FDA. This assay has been validated pursuant to the CLIA regulations and is used for clinical purposes. For additional information, please refer to http://education.[employer]/faq/IKI723f1 (This link if provided for information/ educational purposes only.) 07/27/2020 4:28 PM EDT us Megan De Los Santos MD LAB BLOOD ORDERABLES Final R esult [facility] [address] from Last 3 Months or Most Recently Relevant to Health Maintenance Insurance O Care Teams Housemaid Relationship Specialty Start Date End Date Vilma Clifton MD [address] [place] [phone] PCP - General Internal Medicine 06/21/22
--- OUTSIDE RECORDS SUMMARY | 2024-10-14 13:23 | XMS_ITS | Clinical Summary ---
Author Organization [facility] ity Address [address] [place] [address] Care Team Providers Care Co Founder Name Role Phone Unavailable Primary Care Provider [...] 2) 2011 Breast Cancer Screening 06/03/2020 06/03/2018 Depression Screening 02/11/2024 COVID-19 Vaccine ( - 2023-2 5 season) 2024 Influenza Vaccine (#1) 2024 RSV Immunization Adult Patie nts (1 [...] Procedure Name Priority Date/Time Associated Diagnosis Comments [facility] SCREENING DIGITAL Routine 06/03/2018 6:56 PM EDT Encounter for screening mammogram for malignant neoplasm of breast from Last 3 Months or Most Recently Relevant to Health Maintenance Results * CAS SCREENING DIGITAL (06/03/2018 6:56 PM EDT) Anatomical Region Laterality Modality Mammography 06/03/2018 1:12 PM EDT Narrative 06/03/2018 6:56 PM EDT [facility] Diagnostic Imaging Department [address] [place] [address] Patient: ROMI STEINBERG /Age/Sex: 1960 - 58 - F Unit#: [id number] [facility] Ordering Physician: ANA REYNA [facility] Screening Digital - 06/03/18 - 1332 History: Bilateral breast cancer screening. Technique: Digital mammography. Conventional CC and MLO projections with [...] with more frequent intervals of screening. Recommend annual or biennial mammography. BIRADS category 1; negative study, 3341F 21140, 00169 Note: Patient information entered into a reminder system with a target due date for the next mammogram: CPT II 7025F Dictating Physician: EHSAN LEAHY MD Electronically Signed by: EHSAN LEAHY MD Dic Date/Time: 06/03/181854 Sign date/Time: 06/03/181855 Procedure Note Ehsan Leahy MD - 01/29/2022 [facility] Diagnostic Imaging Department [address] [place] [address] Patient: STEINBERGROMI D.O.B./Age/Sex: 1960 - 58 - F Unit#: [id number] [facility] Mnemonic/Ordering Site: [facility] Ordering Physician: ANA REYNA Cas [...] mammography. BIRADS category 1; negative study, 3341F 40730, 47394 Note: Patient information entered into a reminder system with a target duedate for the next mammogram: CPT II 7025F Dictating Physician: EHSAN LEAHY MD Electronically Signed by: EHSAN LEAHY MD Dic Date/Time: 06/03/181854 Sign date/Time: 06/03/181855 Ana CROOK IMG BI PROCEDURES Final Result from Last 3 Months or Most Recently Relevant to Health Maintenance
--- OUTSIDE RECORDS SUMMARY | 2024-10-14 13:23 | XMS_ITS | Encounter Summary ---
Author Organization [employer] [facility] [employer] Address [address] [place] [address] [address] [place] [address] Care Team Providers Care Donor Relations Manager Name Role Phone Vilma Clifton MD Primary Care Pro vider Encounter Details Date Type Department Care Team ([facility] st Contact Info) Description 04/10/2022 Orders Only [facility] [address] [place] [address] Catia Hassan LPN Social History Tobacco Use [...] on filedocumented in this encounter Care Teams Donor Relations Manager Relationship Specialty Start Date End Date Vilma Clifton MD [address] [place] [address] PCP - General Internal Medicine 06/21/22 documented as of this encounter
--- OUTSIDE RECORDS SUMMARY | 2024-10-14 13:23 | XMS_ITS | Encounter Summary ---
Author Organization [employer] Address [address] [place] [address] [address] [place] [address] Care Team Providers Care Wash Mill Operator Name Role Phone Megan De Los Santos MD Primary Care Provider Vilma Abbott MD Primary Care Pro vider Encounter Details Date Type Department Care Team (Latest Contact Info) Description 01/26/2021 Abstract C CONVERSIONS Dental, Provider, DDS Social History Tobacco [...] on filedocumented in this encounter Care Teams Wash Mill Operator Relationship Specialty Start Date End Date Megan De Los Santos MD PCP - General Family Medicine 04/06/20 12/26/21 Vilma Clifton MD [address] [place] [address] PCP - General Internal Medicine 06/21/22 documented as of this encounter
--- OUTSIDE RECORDS SUMMARY | 2024-10-14 13:23 | XMS_ITS | Encounter Summary ---
Author Organization [employer] Address [address] [facility] 7t [place] [address] Care Team Providers Care Machine Stitcher Name Role Phone Vilma Clifton MD Primary Care Pro vider Encounter Details Date Type Department Care Team ([facility] st Contact Info) Description 04/18/2024 Orders Only [facility] [address] [place] [address] Provider, MD Surendra Social History Tobacco Use [...] the past 12 months, has t he [employer], gas, oil or water [employer] threatened to shut off services in your [...] on file documented as of this encounter Procedures Procedure Name Priority Date/Time Associated Diagnosis Comments BACTERIAL VAGINOSIS PANEL Routine 08/17/2024 10:00 AM EDT URINALYSIS, COMPLETE, WITH REFLEX TO CULTURE Routine 08/17/2024 10:00 AM EDT HM COLONOSCOPY Routine 04/16/2024 7:29 PM EST documented in this encounter Results * Bacterial Vaginosis (08/17/2024 10:00 AM EDT) TRICHOMONAS VAGINALIS DETECTION BY PCR NOT DETECTED Not Detect [facility] BACTERIAL VAGINOSIS DETECTION BY PCR NEGATIVE Negative [facility] Comment:The BV organism targ ets of [...] DETECTION BY PCR NOT DETECTED Not Detect [facility] Rachel glab krusei PCR NOT DETECTED Not Detect [facility] 08/17/2024 10:0 0 AM EDT 08/17/2024 5:25 PM EDT Vilma Zavala MD LAB MICROBIOLOGY - GENERAL ORDERABLES Final Result Performing Organization Address City/[facility]/ZIP Co de Phone Number [facility] [address] [place] [address] [phone] * Urinalysis, Complete, with Reflex to Culture (08/17/2024 10:00 AM EDT) Color Urine Yellow [facility] Appearance Urine Clear [facility] PH 6.5 5.0 - 9.0 [facility] Glucose Urine UA Negative Negative mg/dL [facility] Urine Blood Negative Negative [facility] Specific [place] - Urine 1.020 1.005 - 1.025 [facility] Urine Protein Negative Neg-Trace mg/dL [facility] Urine Ketones Negative Negative mg/dL [facility] Nitrite Urine Negative Negative [facility] Leukocyte Esterase Urine Negative Negative [facility] RBC Urine 0-2 0 - 2 /HPF [facility] Urine WBC 0-5 0 - 5 /HPF [facility] Urine Squamous Epithelial Cell 0-2 0 - 2 /HPF [facility] Urine Bacteria None Seen None Seen [facility] Hyaline Casts, Urine 0-2 0 - 2 /LPF [facility] 08/17/2024 10:0 0 AM EDT 08/17/2024 5:25 PM EDT Narrative [facility] - 08/17/2024 5:59 PM EDT Urine, Clean Catch us Vilma Zavala MD LAB URINE ORDERAB LES Final Result Performing Organization Address [facility]/ZIP Co de Phone Number [facility] [address] [place] [address] [phone] * Hm Colonoscopy (04/16/2024 7:29 PM EST) us Surendra Provider HEALTH MAINTENANCE Final Result documented in this encounter Visit Diagnoses Not on filedocumented in this encounter Additional Health Concerns Assessment Noted Time PHQ-9 Depression Total Score: 0 08/08/19 24 2:15 PM EDT documented as of this encounter Care Teams Machine Stitcher Relationship Specialty Start Date End Date Vilma Clifton MD [address] [place] [phone] PCP - General Internal Medicine 06/21/22 documented as of this encounter
--- OUTSIDE RECORDS SUMMARY | 2024-10-14 13:23 | XMS_ITS | Encounter Summary ---
Author Organization [employer] Address [address] [facility] 7t [place] [address] Care Team Providers Care Senior Gl Accountant Name Role Phone Vilma Clifton MD Primary Care Pro vider Encounter Details Date Type Department Care Team (Latest Contact Info) Description 10/13/2024 Travel Social History Tobacco Use Types Packs/Day Years [...] documented as of this encounter Care Teams Senior Gl Accountant Relationship Specialty Start Date End Date Vilma Clifton MD [address] [place] [phone] PCP - General Internal Medicine 06/21/22 documented as of this encounter
[2024-10-14 13:34] LABS: Bacterial Vaginosis PCR NEGATIVE (Negative); Candida Group PCR NOT DETECTED (Not Detect); Candida glab krusei PCR NOT DETECTED (Not Detect); Trichomonas vaginalis PCR NOT DETECTED (Not Detect)
[2024-10-14 14:07] LABS: CT PCR NOT DETECTED (Not Detect.); NG PCR NOT DETECTED (Not Detect.)
== END 2024-10-13 11:43 | disposition home or self-care (01) ==
LOC: HO.HHCLNP 11:42
PROVIDERS: Visit Provider Family Medicine
DX: R31.9 Hematuria, unspecified (principal); N89.8 Other specified noninflammatory disorders of vagina
CPT/HCPCS: 81001; 81515; 87491; 87591

== ENCOUNTER 2024-11-03 14:42 | Outpatient (REF) | payer BC, SELFPAY ==
--- NOTE | ~2024-11-03 | MM_ITS ---
EXAMINATION: MM SCREENING DIGITAL BREAST TOMOSYNTHESIS, BILATERAL CLINICAL INFORMATION: Screening. Asymptomatic. COMPARISON: Comparison made to multiple prior, most recent April 17, 2023, and most remote April 09, 2010. TECHNIQUE: Digital breast tomosynthesis is performed in mediolateral oblique and craniocaudal views along with computer-aided detection (CAD). Synthesized 2D images are generated from the tomosynthesis. FINDINGS: BREAST COMPOSITION: There are scattered areas of fibroglandular density. BILATERAL BREASTS: No significant masses, suspicious calcifications or other abnormalities are seen in either breast. MM/MM tomosynthesis screening BI IMPRESSION: BILATERAL BREASTS: Negative, no mammographic evidence of malignancy. Normal interval follow-up is recommended in 12 months. ASSESSMENT: BI-RADS: Category 1: Negative RECOMMENDATION: Routine annual mammography screening. FOLLOW-UP: 1 year F/U This examination should not preclude the clinical evaluation of a suspicious palpable abnormality. This patient's information was entered into a reminder system with a target due date for their next mammogram. Electronically signed by: Darin Knight MD 11/05/2024 07:02 PM EDT
--- OUTSIDE RECORDS SUMMARY | 2024-11-03 17:18 | XMS_ITS | Clinical Summary ---
Author Organization [employer] Address [address] [facility] 7t [place] [address] Care Team Providers Care Roving Changer Name Role Phone Vilma Clifton MD Primary [...] w food insecurity, already spoke w case resource manager prior to this apt ---- -Phlegm [...] diet and exercise,discussed healthy life style -discussed soaping machine back tender referral, refused today Assessment & Plan (07/22/2022 9:28 PM EDT): Advised pt to improve diet and exercise,discussed healthy life style -discussed soaping machine back tender referral, refused today Hematuria, unspecified 08/05/2019 Assessment & Plan (10/13/2024 6:34 PM EDT): Hx of urinary incontinence/hematuria -PCP placed referral to Uro/Press Set Up Person 08/17/24 for follow-up given abnormal pelvic US, [...] of urinary incontinence/hematuria, f w urologist at [facility] per pt Pt states was referred by specialist for rehab of pelvic floor and plan for cystoscopy not done yet----- Advise pt to call her urologist and schedule f up for planned tests and procedure - Continue Solifenacin Encounters Date Type Department Care Team Description 10/14/2024 Telephone [facility] [address] [place] [phone] Vilma Clifton MD No Show 10/13/2024 6:00 PM EDT Office Visit [facility] [address] [place] [phone] Padmini Hernandez MD Hematuria, unspecified type (Primary Dx); Vaginal discharge; Acute vaginitis 10/13/2024 Travel 09/09/2024 Telephone [facility] [address] [place] [address] [phone] Vilma Clifton MD 08/17/2024 9:15 AM EDT Office Visit [facility] [address] [place] [phone] Vilma Clifton MD Breast cancer screening by mammogram (Primary Dx); Dietary counseling; Exercise counseling; Abnormal pelvic ultrasound; Urinary incontinence, unspecified type; Annual physical exam; Vaginal discharge; Urinary frequency; Hypertension, unspecified type; Overweight (BMI 25.0-29.9); Frequency of micturition; Hematuria, unspecified type; Healthcare maintenance; Increased endometrial stripe thickness 08/17/2024 Travel 08/16/2024 Telephone [facility] [address] [place] [phone] iVlma Clifton MD chart prep 08/09/2024 10:30 AM EDT Office Visit [facility] [address] [place] [phone] Matt, Ratna, OD Strabismic amblyopia of both eyes (Primary Dx); Early cataracts, bilateral; White without pressure of peripheral retina of both eyes; Presbyopia 08/09/2024 Patient Outreach [facility] [address] [place] [address] Vilma Clifton MD Pre-visit Planning ([facility] unable to reach [facility]) 08/09/2024 Travel 08/03/2024 Travel from Last [...] 08/17/2025 08/17/2024 Depression Screening 08/17/2025 08/17/2024, 08/18/19 25 Disability Screening 08/17/2025 08/17/2024 SDOH Screening 08/17/2025 [...] Routine 10/13/2024 6:25 PM EDT Vaginal discharge CHLAMYDIA/N. GONORRHOEAE RNA, TMA, UROGENITAL Routine 10/13/2024 6:20 PM EDT Vaginal discharge BACTERIAL VAGINOSIS PANEL Routine 10/13/2024 6:19 PM EDT Vaginal discharge POCT URINALYSIS DIPSTICK [...] time period is included. Color Urine Yellow [facility] Appearance Urine Clear [facility] PH 8.0 5.0 - 9.0 [facility] Glucose Urine UA Negative Negative mg/dL [facility] Urine Blood Negative Negative [facility] Specific [place] - Urine 1.010 1.005 - 1.025 [facility] Urine Protein Negative Neg-Trace mg/dL [facility] Urine Ketones Negative Negative mg/dL [facility] Nitrite Urine Negative Negative [facility] Leukocyte Esterase Urine Negative Negative [facility] RBC Urine 0-2 0 - 2 /HPF [facility] Urine WBC 0-5 0 - 5 /HPF [facility] Urine Squamous Epithelial Cell 0-2 0 - 2 /HPF [facility] Urine Bacteria None Seen None Seen [facility] Hyaline Casts, Urine 0-2 0 - 2 /LPF [facility] Urine Urine specimen obtained by clean catch procedure / Unknown 10/13/2024 6:36 PM EDT 10/14/2024 11:48 AM EDT Narrative [facility] - 10/14/2024 12:38 PM EDT Urine, Clean Catch us Padmini Hernandez MD LAB URINE ORDERABLES Final Result [facility] [address] [place] [phone] [phone] * (ABNORMAL) POCT Urinalysis (10/13/2024 6:25 [...] Expiration Date Urine 10/13/2024 6:25 PM EDT Padmini Hernandez MD POINT OF CARE TEST ENTER/E DIT ORDERABLES Final Result * Chlamydia/N. Gonorrhoeae RNA, TMA, Vaginal (10/13/2024 6:20 PM EDT) Only the most recent of2 resultswithin the time period is included. Pathologist [facility] CT PCR NOT DETECTED Not Detect. [facility] Comment:A not detected test result does [...] psychologicalconsequences. NG PCR NOT DETECTED Not Detect. [facility] Comment:A not detected test result does [...] medical, social or psychologicalconsequences. Swab (Vaginal Swab) 10/13/2024 6:20 PM EDT 10/14/2024 11:44 AM EDT Padmini Hernandez MD LAB MICROBIOLOGY - GENERAL ORDERABLES Final Result [facility] [address] [place] [phone] * Bacterial Vaginosis (10/13/2024 6:19 PM EDT) Only the most recent of2 resultswithin the time period is included. TRICHOMONAS VAGINALIS DETECTION BY PCR NOT DETECTED Not Detect [facility] BACTERIAL VAGINOSIS DETECTION BY PCR NEGATIVE Negative [facility] Comment:The BV organism targ ets of [...] DETECTION BY PCR NOT DETECTED Not Detect [facility] Rachel glab krusei PCR NOT DETECTED Not Detect [facility] Swab Vaginal structure / Unknown 10/13/2024 6:19 PM EDT 10/14/2024 11:44 AM EDT Padmini Hernandez MD LAB MICROBIOLOGY - GENERAL ORDERABLES Final Result Performing Organization Address City/[facility]/ZIP Co de Phone Number [facility] [address] [place] [phone] * Albumin, Random Urine W/Creatinine (08/17/2024 10:00 AM EDT) Creatinine, Urine 196.81 mg/dL [facility] Microalbumin Urine 12.0 mg/L [facility] Microalbum Creatinine Ratio Ur 6.0 <30 ug/mg cr [facility] Comment:Albumin/Creatinine R atio Reference Ranges: Normal: < 30 ug/mg creatinine Microalbuminuria: 30 - 300 ug/mg creatinineClinical Albuminuria: > 300 ug/mg creatinine Urine (Urine, Random) 08/17/2024 10:00 AM EDT 08/17/2024 5:26 PM EDT Vilma Zavala MD LAB URINE ORDERAB LES Final Result Performing Organization Address [facility] de Phone Number [facility] [address] [place] [phone] * Hm Colonoscopy (04/16/2024 7:29 PM EST) Surendra Provider HEALTH MAINTENANCE Final Result * Hepatitis C Antibody with Reflex to HCV, RNA, Quantitative, Real-Time PCR (09/23/2023 10:16 AM EDT) Hepatitis C Antibody Nonreactive Nonreactive [facility] Comment:Antibodies to HCV no t detected; does not exclude early acuteHCV infection. Blood Venous blood specimen / Unknown 09/23/2023 10:16 AM EDT 09/23/2023 11:42 AM EDT Vilma Zavala MD LAB BLOOD ORDERAB LES Final Result Performing Organization Address City/[facility]/ZIP Co de Phone Number [facility] [address] [place] [phone] * HIV-1/2 Antigen and Antibodies, Fourth Generation, with Reflexes (09/23/2023 10:16 AM EDT) HIV AB/AG Nonreactive Nonreactive [facility] Comment:HIV-1 p24 Ag and/or HIV-1/HIV-2 Ab not detected.A test result that is nonreactive does not exclude thepossibility of exposure to or infection with HIV-1 and/orHIV-2. Nonreactive results in this assay for individualswith prior exposure to HIV-1 and/or HIV-2 may be due toantigen and antibody levels that are below the limit ofdetection of this assay.The Primitive Makeup HIV Ag/Ab Combo assay result andsupplemental assay results should be interpreted inconjunction with the patient's clinical presentation,history and other laboratory results. If the results areinconsistent with clinical evidence, additional testing issuggested to confirm the result. Blood Venous blood specimen / Unknown 09/23/2023 10:16 AM EDT 09/23/2023 11:42 AM EDT us Vilma Zavala MD LAB BLOOD ORDERAB LES Final Result [facility] [address] [place] [phone] * (ABNORMAL) Lipid Panel, Standard (09/23/2023 10:16 AM EDT) Triglycerides 80 <150 mg/dL [facility] Comment:Desirable Triglyceri de: less than 150 mg/dLBorderline High Triglyceride 150-199 mg/dLHigh Triglyceride: 200-499 mg/dLVery High Triglyceride: greater than or equal to 5OO mg/dL Cholesterol 199 <200 mg/dL [facility] Comment:Desirable Cholestero l: less than 200 mg/dLBorderline High Cholesterol: 200-239 mg/dLHigh Cholesterol: greater than 239 mg/dL LDL Cholesterol Calculated 116(H) <100 mg/dL [facility] Comment:Desirable LDL: less than 100 mg/dLNear Optimal/Above Optimal LDL: 110- 129 mg/dLBorderline High LDL: 130-159 mg/dLHigh LDL: 160-189 mg/dLVery High LDL: greater than or equal to 190 mg/dL HDL Cholesterol 67 >40 mg/dL [facility] Comment:Desirable HDL: great er than 40 mg/dL Note: This HDL assay may give artificially low results in patients with liver disease. Blood Venous blood specimen / Unknown 09/23/2023 10:16 AM EDT 09/23/2023 11:42 AM EDT Vilma Zavala MD LAB BLOOD ORDERAB LES Final Result Performing Organization Address City/State/[place] Co de Phone Number [facility] [address] [place] [phone] * BI Mammogram Screening Tomosynthesis Bilateral (04/17/2023 12:46 PM EST) Anatomical Region Laterality Modality Breast Bilateral Mammography 04/17/2023 12:4 6 PM EST Narrative 04/28/2023 4:26 AM EDT [facility] [address] [place] [address] Mammography Report Signed Patient: Romi Steinberg MR#: [id number] : 1960 Acct:[id number] Age/Sex: 63 / F ADM Date: 04/17/23 Loc: HO.MAMMO Attending Dr: Vilma Zavala MD Ordering Physician: Vilma Clifton MD Re sults: 1Negative Date of Service: 04/17/23 Follow Up: 1 Year From Orig inal Mammogram Procedure(s): MM tomosynthesis screening BI Accession Number(s): [id number] cc: Vilma Clifton MD EXAMINATION: MM SCREENING [...] in OV> 04/28/23 0423 DD/ 1246 TD/TT: Day Camp Counselor: Procedure Note Donotuseinterpreter, Image - 04/28/2023 Tashi [facility] [address] [place] [address] Mammography Report Signed Patient: Edmond Steinberg#: [id number] : 2Acct:[id number] Age/Sex: 63 / FADM Date: 04/17/23 Loc: MAMMO Attending Dr: Vilma Zavala MD Ordering Physician: Vilma Clifton sults: 1Negative Date of Service: 04/17/23Follow Up: 1 Year From [facility] Mammogram Procedure(s): MM tomosynthesis screening BI Accession Number(s): [id number] cc: Vilma Clifton MD EXAMINATION: MM SCREENING [...] in OV> 04/28/23 0423 DD/ 1246 TD/TT: Day Camp Counselor: us Vilma Zavala MD IMG BI PROCEDURES [...] along with historic and current clinical information. Brake Drum Molder : SEE COMMENT [facility] Comment: RMM, CT(ASCP) CT screening location: [place] [address] Infection Shift in vaginal sandoval suggestive of bacterial vaginosis. [facility] Interpretation/R esult: Negative for intraepithelial lesion or malignancy. [facility] LMP: NONE GIVEN [facility] Prev. BX: NONE GIVEN [facility] Prev. PAP: NONE [facility]IV[facility] SOURCE: None given [facility] Statement Of Adequacy: SEE COMMENT [facility] Comment: Satisfactory for evaluation. Endocervical/transformation zone component present. 07/27/2020 4:28 PM EDT us Megan De Los Santos MD LAB PATHOLOGY ORDERABLES Fin al Result [facility] [address] * HPV mRNA E6/E7 (07/27/2020 4:28 PM EDT) HPV nRNA E6/E7 Not Detected Not Detected [facility] Comment: Methodology: It Training Specialist-Mediated Amplification This assay detects E6/E7 viral messenger RNA (mRNA) from 14 high-risk HPV types (16,18,31,33,35,39,45,51,52,56,58,59,66,68). The analytical performance characteristics of this assay have been determined by [employer]. The modifications have not been cleared or approved by the FDA. This assay has been validated pursuant to the CLIA regulations and is used for clinical purposes. For additional information, please refer to http://education.[employer]/faq/JTK042o8 (This link if provided for information/ educational purposes only.) 07/27/2020 4:28 PM EDT Megan De Los Santos MD LAB BLOOD ORDERABLES Final R esult [facility] [address] from Last 3 Months or Most Recently Relevant to Health Maintenance Insurance Care Teams Roving Changer Relationship Specialty Start Date End Date Vilma Clifton MD [address] [place] [phone] PCP - General Internal Medicine 06/21/22
--- OUTSIDE RECORDS SUMMARY | 2024-11-03 17:18 | XMS_ITS | Encounter Summary ---
Author Organization [employer] Address [address] [place] [address] [address] [place] [address] Care Team Providers Care Electric Meter Installer Helper Name Role Phone Megan De Los Santos [...] on filedocumented in this encounter Care Teams Electric Meter Installer Helper Relationship Specialty Start Date End Date Megan De Los Santos MD PCP - General Family Medicine 04/06/20 12/26/21 Vilma Clifton MD [address] [place] [address] PCP - General Internal Medicine 06/21/22 documented as of this encounter
--- OUTSIDE RECORDS SUMMARY | 2024-11-03 17:18 | XMS_ITS | Encounter Summary ---
Author Organization [email or web address] Address 75 [facility] 7t [place] [address] Care Team Providers Care Hvac Sales Representative Name Role Phone Vilma Clifton MD Primary Care Pro vider Encounter Details Date Type Department Care Team ([facility] st Contact Info) Description 04/18/2024 Orders Only [facility] [address] [place] [address] Provider, MD Surendra Social History Tobacco Use [...] the past 12 months, has t he [employer], gas, oil or water [employer] threatened to shut off services in your [...] DETECTION BY PCR NOT DETECTED Not Detect [facility] BACTERIAL VAGINOSIS DETECTION BY PCR NEGATIVE Negative [facility] Comment:The BV organism targ ets [...] DETECTION BY PCR NOT DETECTED Not Detect [facility] Rachel glab krusei PCR NOT DETECTED Not Detect [facility] 08/17/2024 10:0 0 AM EDT 08/17/2024 5:25 PM EDT Vilma Zavala MD LAB MICROBIOLOGY - GENERAL ORDERABLES Final Result Performing Organization Address City/[facility]/ZIP Co de Phone Number [facility] [address] [place] [phone] [phone] * Urinalysis, Complete, with Reflex to Culture (08/17/2024 10:00 AM EDT) Color Urine Yellow [facility] Appearance Urine Clear [facility] PH 6.5 5.0 - 9.0 [facility] Glucose Urine UA Negative Negative mg/dL [facility] Urine Blood Negative Negative [facility] Specific [place] - Urine 1.020 1.005 - 1.025 [facility] Urine Protein Negative Neg-Trace mg/dL [facility] Urine Ketones Negative Negative mg/dL [facility] Nitrite Urine Negative Negative [facility] Leukocyte Esterase Urine Negative Negative [facility] RBC Urine 0-2 0 - 2 /HPF [facility] Urine WBC 0-5 0 - 5 /HPF [facility] Urine Squamous Epithelial Cell 0-2 0 - 2 /HPF [facility] Urine Bacteria None Seen None Seen [facility] Hyaline Casts, Urine 0-2 0 - 2 /LPF [facility] 08/17/2024 10:0 0 AM EDT 08/17/2024 5:25 PM EDT Narrative [facility] - 08/17/2024 5:59 PM EDT Urine, Clean Catch us Vilma Zavala MD LAB URINE ORDERAB LES Final Result Performing Organization Address [facility]/ZIP Co de Phone Number [facility] [address] [place] [address] [phone] * Hm Colonoscopy (04/16/2024 7:29 PM EST) us Surendra Provider HEALTH MAINTENANCE Final Result documented in this encounter Visit Diagnoses Not on filedocumented in this encounter Additional Health Concerns Assessment Noted Time PHQ-9 Depression Total Score: 0 08/08/19 24 2:15 PM EDT documented as of this encounter Care Teams Hvac Sales Representative Relationship Specialty Start Date End Date Vilma Clifton MD [address] [place] [phone] PCP - General Internal Medicine 06/21/22 documented as of this encounter
--- OUTSIDE RECORDS SUMMARY | 2024-11-03 17:18 | XMS_ITS | Encounter Summary ---
Author Organization [employer] Address [address] [place] [address] [address] [place] [address] Care Team Providers Care Post Splitter Name Role Phone Vilma Clifton MD Primary Care Pro vider Encounter Details Date Type Department Care Team ([facility] st Contact Info) Description 04/10/2022 Orders Only [facility] [address] [place] [address] Catia Hassan LPN Social History Tobacco Use [...] on filedocumented in this encounter Care Teams Post Splitter Relationship Specialty Start Date End Date Vilma Clifton MD [address] [place] [address] PCP - General Internal Medicine 06/21/22 documented as of this encounter
--- OUTSIDE RECORDS SUMMARY | 2024-11-03 17:18 | XMS_ITS | Encounter Summary ---
Author Organization [employer] Address [address] [place] [address] Care Team Providers Care Biodiesel Product Manager Name Role Phone Vilma Clifton MD Primary Care Pro vider Reason for Visit * Reason Comments Med Refill Encounter Details Date Type Department Care Team ([facility] st Contact Info) Description 06/28/2023 Refill [facility] [address] [place] [address] Vilam Clifton MD [address] [place] [address] Primary hypertension Social History Tobacco Use Types [...] documented as of this encounter Care Teams Biodiesel Product Manager Relationship Specialty Start Date End Date Vilma Clifton MD [address] [place] [phone] PCP - General Internal Medicine 06/21/22 documented as of this encounter
--- OUTSIDE RECORDS SUMMARY | 2024-11-03 17:18 | XMS_ITS | Clinical Summary ---
Author Organization [facility] ity Address [address] [place] [address] Care Team Providers Care Director Utilization Management Name Role Phone Unavailable Primary Care Provider [...] Procedure Name Priority Date/Time Associated Diagnosis Comments [facility] SCREENING DIGITAL Routine 06/03/2018 6:56 PM EDT Encounter for screening mammogram for malignant neoplasm of breast from Last 3 Months or Most Recently Relevant to Health Maintenance Results * CAS SCREENING DIGITAL (06/03/2018 6:56 PM EDT) Anatomical Region Laterality Modality Mammography 06/03/2018 1:12 PM EDT Narrative 06/03/2018 6:56 PM EDT [facility] Diagnostic Imaging Department [address] [place] [address] Patient: ROMI STEINBERG /Age/Sex: 1960 - 58 - F Unit#: [id number] [facility]Ordering Site[facility] Ordering Physician: ANA REYNA [facility] Screening Digital - 06/03/18 - 1332 [...] mammography. BIRADS category 1; negative study, 3341F [id number], [id number] Note: Patient information entered into a reminder system with a target due date for the next mammogram: CPT II 7025F Dictating Physician: EHSAN LEAHY MD Electronically Signed by: EHSAN LEAHY MD Dic Date/Time: 06/03/181854 Sign date/Time: 06/03/181855 Procedure Note Ehsan Leahy MD - 01/29/2022 [facility] Diagnostic Imaging Department [address] [place] [address] Patient: STEINBERGROMI D.O.B./Age/Sex: 1960 - 58 - F Unit#: [id number] [facility] Mn[facility]onic/Ordering Site: [facility] Ordering Physician: ANA REYNA Cas Screening Digital [...] mammography. BIRADS category 1; negative study, 3341F 95489, [id number] Note: Patient information entered into a reminder system with a target duedate for the next mammogram: CPT II 7025F Dictating Physician: EHSAN LEAHY MD Electronically Signed by: EHSAN LEAHY MD Dic Date/Time: 06/03/181854 Sign date/Time: 06/03/181855 Ana CROOK IMG BI PROCEDURES Final Result from Last 3 Months or Most Recently Relevant to Health Maintenance
== END 2024-11-03 14:43 | disposition home or self-care (01) ==
LOC: HO.MAMMO 14:42
PROVIDERS: PCP Student in an Organized Health Care Education/Training Program; Visit Provider Student in an Organized Health Care Education/Training Program
DX: Z12.31 Encounter for screening mammogram for malignant neoplasm of breast (principal)
CPT/HCPCS: 77063; 77067

== ENCOUNTER → 2024-11-03 14:45 | Outpatient (BNV) | payer BC, SELFPAY | PROVIDERS: PCP Student in an Organized Health Care Education/Training Program; Visit Provider Radiology Body Imaging | DX: Z12.31 Encounter for screening mammogram for malignant neoplasm of breast (principal) | CPT/HCPCS: 77063; 77067 ==